=== PATIENT | male | born 1960 | race Caucasian/White ===

== ENCOUNTER 2018-03-29 22:55 | Inpatient (IN) | END 2018-04-03 18:07 | disposition home or self-care (01) | DRG 439 ==

== ENCOUNTER 2018-05-28 00:35 | Inpatient (IN) | END 2018-05-31 16:10 | disposition home or self-care (01) | DRG 439 ==

== ENCOUNTER 2018-10-04 19:40 | Inpatient (IN) | payer BC ==
[~2018-10-04] VITALS: Ht 170.2 cm; Wt 96.2 kg
[~2018-10-04 19:40] MED LIST: CIPR500T4 PO; METR500T PO
[2018-10-04] MEDS ORDERED: LIDOCAINE/MYLANTA 40 ML BTL PO STA (22:11)
[2018-10-04] MEDS ORDERED: FAMOTIDINE 20 MG INJ IV STA (22:11)
[2018-10-04] MEDS ORDERED: BELLADONNA/PHENOBARBITAL TAB PO STA (22:11)
--- NOTE | 2018-10-04 22:44 | ERD ---
ER Documentation Chief Complaint Chief Complaint EPIGASTRIC PAIN X'S 6 DAYS; PAIN INCREASING HPI Very pleasant 58-year-old gentleman prior history of gallstone pancreatitis who presents to the emergency room with epigastric postprandial symptoms. He describes approximately 1 week of symptoms that are usually worse with caffeine and chocolate. He describes a gurgling sensation in his epigastrium with mild burning sensation. He states this feels different than his pancreatitis. He denies any hematemesis or melena. No fevers or chills. No chest pressure or exertional symptoms. ROS All systems reviewed and are negative except as per history of present illness. Medications Home Meds Active Scripts Metronidazole* (Flagyl*) 500 Mg Tablet, 500 MG PO Q8 for 4 Days, TAB Prov:KOFI METZGER MD 05/31/18 Ciprofloxacin Hcl* (Ciprofloxacin Hcl*) 500 Mg Tablet, 500 MG PO BID for 4 Days, #14 TAB Prov:KOFI METZGER MD 05/31/18 Allergies Allergies: Coded Allergies: No Known Allergy (Unverified , 03/29/18) PMhx/Soc History of Surgery: No Anesthesia Reaction: No Hx Neurological Disorder: No Hx Respiratory Disorders: No Hx Cardiac Disorders: No Hx Psychiatric Problems: No Hx Miscellaneous Medical Probl: No Hx Alcohol Use: No Hx Substance Use: No Hx Tobacco Use: No FmHx Family History: No diabetes Physical Exam Vitals Vital Signs Date Temp Pulse Resp B/P (MAP) Pulse Ox O2 O2 Flow FiO2 Time Delivery Rate 10/04/18 98.7 62 18 189/106 97 19:48 (133) Physical Exam General: Well developed, well nourished, no acute distress Head: Normocephalic, atraumatic. Eyes: Pupils equally reactive, EOM intact ENT: Moist mucous membranes Neck: Supple, no lymphadenopathy Respiratory: Lungs clear bilaterally, no distress Cardiovascular: RRR, no murmurs, rubs, or gallops Abdominal: Soft, mild epigastric abdominal discomfort and tenderness to palpation, negative Cervantes sign, otherwise benign abdominal exam without peritonitis. : Deferred MSK: No edema, no unilateral swelling, 5/5 strength Neurologic: Alert and oriented, moving all extremities, normal speech, no focal weakness, no cerebellar signs Skin: No rash Psych: Normal mood Result Diagram: 5/1/19 2223 5/1/19 2223 Results 24 hrs Laboratory Tests Test 10/04/18 22:23 White Blood Count 10.7 10^3/ul Red Blood Count 5.05 10^6/ul Hemoglobin 15.6 g/dl Hematocrit 46.0 % Mean Corpuscular Volume 91.1 fl Mean Corpuscular Hemoglobin 30.9 pg Mean Corpuscular Hemoglobin Concent 33.9 g/dl Red Cell Distribution Width 12.8 % Platelet Count 182 10^3/UL Mean Platelet Volume 11.8 fl Immature Granulocytes % 0.300 % Neutrophils % 81.5 % Lymphocytes % 13.1 % Monocytes % 4.7 % Eosinophils % 0.1 % Basophils % 0.3 % Nucleated Red Blood Cells % 0.0 /100WBC Immature Granulocytes # 0.030 10^3/ul Neutrophils # 8.7 10^3/ul Lymphocytes # 1.4 10^3/ul Monocytes # 0.5 10^3/ul Eosinophils # 0.0 10^3/ul Basophils # 0.0 10^3/ul Nucleated Red Blood Cells # 0.0 10^3/ul Sodium Level 136 mmol/L Potassium Level 4.3 mmol/L Chloride Level 100 mmol/L Carbon Dioxide Level 28 mmol/L Anion Gap 8 Blood Urea Nitrogen 15 mg/dl Creatinine 0.60 mg/dl Est Glomerular Filtrat Rate mL/min > 60 mL/min Glucose Level 143 mg/dl Calcium Level 9.7 mg/dl Total Bilirubin 1.0 mg/dl Direct Bilirubin 0.00 mg/dl Indirect Bilirubin 1.0 mg/dl Aspartate Amino Transf (AST/SGOT) 59 IU/L Alanine Aminotransferase (ALT/SGPT) 148 IU/L Alkaline Phosphatase 154 IU/L Total Protein 7.6 g/dl Albumin 4.3 g/dl Globulin 3.30 g/dl Albumin/Globulin Ratio 1.30 Lipase 4156 U/L Current Medications Medications Dose Sig/Estela Start Time Status Last (Trade) Ordered Route PRN Stop Time Admin Dose Reason Admin Famotidine 20 mg ONCE STAT 10/04/18 DC 10/04/18 (Pepcid Iv) IV 22:11 10/04/18 22:35 22:12 40 ml ONCE STAT 10/04/18 DC 10/04/18 Miscellaneous PO 22:11 10/04/18 22:35 Medication 22:12 (Gi Cocktail (2)) Belladonna/ 2 tab ONCE STAT 10/04/18 DC 10/04/18 Phenobarbital PO 22:11 10/04/18 22:35 () 22:12 Ondansetron 4 mg BRIDGE ORDER 10/05/18 HCl (Zofran PRN IV 01:00 10/06/18 Inj) NAUSEA/VOMITI 00:59 NG 650 mg ER BRIDGE 10/05/18 Acetaminophen PRN PO 01:00 10/06/18 (Tylenol .MILD PAIN 00:59 Tab) 1-3 OR TEMP Procedures/MDM EKG, MONITORS, & DIAGNOSTIC IMAGING: Ultrasound gallbladder: IMPRESSION: Gallstones and gallbladder sludge without ultrasound evidence of cholecystitis. Mildly dilated common bile duct measuring 6.8 mm. Mild hepatomegaly. Pancreas obscured by overlying bowel gas. XR knee IMPRESSION: Mild medial joint compartment narrowing. Patellofemoral joint osteoarthritis. RPTAT: HLRS LAB INTERPRETATION: I reviewed the laboratory testing and it shows transaminitis and elevated lipase MEDICAL DECISION MAKING: The patient symptoms seem to be more postprandial and likely gastric in etiology. However the patient has a history of pancreatitis related to gallsto hyun. Will have a lower pretest probability for hepatobiliary process ultrasound and laboratory testing would be most appropriate. No chest pain or pressure or exertional symptoms to suggest cardiac etiology. Patient has a benign abdominal exam without concern for acute appendicitis, bowel obstruction or other acute intra-abdominal abnormality. ER COURSE: * GI cocktail provided * Patient found to have pancreatitis likely secondary to gallstones. No evidence of acute cholecystitis. No evidence of ascending cholangitis. No indication for antibiotics. Patient is n.p.o. * Patient to be admitted for further management of likely gallstone pancreatitis. Patient likely requires nonemergent general surgery and GI consultation. CONSULTATION: [None] DISPOSITION PLAN: Medical surgical admission for management of gallstone pancreatitis accepting care team and consultations: I discussed the current laboratory data, diagnostic imaging and emergency care provided. Admitting team: Dr. Lane Pham Admitting team indication: Insurance directed Departure Diagnosis: Primary Impression: Acute gallstone pancreatitis Additional Impression: Epigastric abdominal pain Condition: Stable DEVIN FABIAN MD October 04, 2018 22:44
[2018-10-05] MEDS ORDERED: ACETAMINOPHEN 325 MG TAB PO PRN (01:00)
[2018-10-05] MEDS ORDERED: ONDANSETRON 4 MG INJ IV PRN ×2 (01:00→06:00)
[2018-10-05 02:25] VITALS: Ht 170.2 cm; Wt 96.2 kg
[2018-10-05 02:30] VITALS: BP 161/92; PULSE 74; RESP 20
[2018-10-05] MEDS: DEXTROSE 5%-0.45% NACL 1,000 ML IV SCH ×2 (06:41→22:06)
[2018-10-05] MEDS: morphine 2 MG INJ IV PRN (06:41)
[2018-10-05] MEDS: PANTOPRAZOLE 40 MG INJ IV SCH (06:42)
[2018-10-05 07:43] VITALS: BP 161/92; PULSE 84; RESP 18
[2018-10-05] MEDS: CEFTRIAXONE 1 GM/50 ML (PMX) 50 ML IVPB SCH (08:06)
[2018-10-05] MEDS ORDERED: CEFTRIAXONE 1 GM INJ IVPB SCH (09:00)
[2018-10-05] MEDS ORDERED: CEFTRIAXONE 1 GM INJ IM SCH (09:00)
--- NOTE | 2018-10-05 09:47 | CONS ---
Assessment/Plan Assessment/Plan Hospital Course (Demo Recall) 1. 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 Cholelithiasis -As above -Eventual cholecystectomy once #1 resolved 3. Abdominal pain: -Pain management 4. Leukocytosis -As above -Trend 5. Transaminitis with elevated bilirubin: -Trend -As above 6. Hypoalbuminemia with hypocalcemia: -Eventual nutrition optimization -Treat infections 7. Obesity: BMI: 33 -diet and exercise optimization -encourage weight loss 8. Hypertension -Highly encourage weight loss -Nutrition and medication optimization Thank you. Patient seen and examined in collaboration with Dr. Matteo Pennington. Consultation Date/Type/Reason Admit Date/Time October 05, 2018 at 00:42 Type of Consult Surgical Reason for Consultation Gallstone pancreatitis Date/Time of Note DATE: 10/05/18 TIME: 09:43 Hx of Present Illness Lilli Camargo is a 58-year-old man vwho is known to our service from previous admissions with significant history of gallstone pancreatitis, who presented to the ED with complaints of abdominal pain. Abdominal pain is predominantly midepigastric strong and persistent in nature. He also reports having a burning sensation in the area, different from pain he experienced when he had pancreatitis. Aggravating factors include food, particularly caffeine and chocolate. He denies fevers, chills, congested cough, chest pain, palpitations, nausea, vomiting, diarrhea, bowel or bladder habit changes, skin or scleral changes. Prior imaging performed in 05/2018 noted acute on chronic interstitial edematous pancreatitis with phlegmon anterior to right kidney and slightly increased wall thickening of the third portion of duodenum with surrounding inflammatory changes. Current gallbladder ultrasound shows gallstones with gallbladder sludge without pericholecystic fluid or gallbladder wall thickening. Notably, he has a mildly dilated common bile duct of 6.8 mm. Laboratory findings significant for leukocytosis with WBC of 12.8, elevated transaminases and lipase of 4156. General surgery was asked to evaluate. 12 point ros was performed and is negative except as stated in hpi. Past Medical History Gallstone pancreatitis with phlegmon, obesity, traumatic abdominal injury status post fall from tree with resulting pancreatic and splenic injury as well as ab dominal infection status post drainage of abscess in 2017 Home Meds Discontinued Scripts Metronidazole* (Flagyl*) 500 Mg Tablet, 500 MG PO Q8 for 4 Days, TAB Prov:KOFI METZGER MD 05/31/18 Ciprofloxacin Hcl* (Ciprofloxacin Hcl*) 500 Mg Tablet, 500 MG PO BID for 4 Days, #14 TAB Prov:KOFI METZGER MD 05/31/18 Medications Current Medications Morphine Sulfate (morphine) 2 mg Q6 PRN IV SEVERE PAIN LEVEL 7-10 Last administered on 10/05/18at 06:41; Admin Dose 2 MG; Start 10/05/18 at 06:00 Ondansetron HCl (Zofran Inj) 4 mg Q6H PRN IV NAUSEA AND/OR VOMITING; Start 10/05/18 at 06:00 Dextrose/Sodium Chloride 1,000 ml @ 50 mls/hr Q20H IV Last administered on 10/05/18at 06:41; Admin Dose 50 MLS/HR; Start 10/05/18 at 06:00 Pantoprazole (Protonix Iv) 40 mg DAILY@06 IV Last administered on 10/05/18at 06:42; Admin Dose 40 MG; Start 10/05/18 at 06:00 Ceftriaxone Sodium 50 ml @ 100 mls/hr Q24H IVPB Last administered on 10/05/18at 08:06; Admin Dose 100 MLS/HR; Start 10/05/18 at 09:00 Allergies: Coded Allergies: No Known Allergy (Unverified , 10/05/18) Past Surgical History Past Surgical Hx: no surgical history Social History Smoking Status: Never smoker Exam/Review of Systems Exam Vitals Vital Signs Date Temp Pulse Resp B/P (MAP) Pulse Ox O2 O2 Flow FiO2 Time Delivery Rate 10/05/18 98.5 84 18 161/92 95 Room Air 07:43 (115) Exam Constitutional: alert, oriented Psych: no complaints, nl mood/affect Head: normocephalic, atraumatic Eyes: nl conjunctiva, EOMI, nl sclera ENMT: nl external ears & nose, nl lips & teeth, mucosa pink and moist Neck: supple, non-tender Respiratory: clear to auscultation, normal air movement; No congested cough, No labored breathing Cardiovascular: regular rate and rhythm, nl pulses; No edema Gastrointestinal: soft, tender (min), obese, no rebound/guarding/rigidity Musculoskeletal: nl extremities to inspection, nl gait and stance Extremities: normal pulses; No pitting pedal edema Neurological: nl mental status, nl speech, nl strength Skin: No rash or lesions Results Result Diagram: 10/05/18 0716 10/05/18 0716 Results 24hrs Laboratory Tests Test 10/04/18 22:23 10/05/18 07:16 White Blood Count 10.7 # 12.8 H Red Blood Count 5.05 4.79 Hemoglobin 15.6 15.0 Hematocrit 46.0 43.2 Mean Corpuscular Volume 91.1 90.2 Mean Corpuscular Hemoglobin 30.9 31.3 Mean Corpuscular Hemoglobin Concent 33.9 34.7 Red Cell Distribution Width 12.8 12.4 Platelet Count 182 173 Mean Platelet Volume 11.8 H 12.1 H Immature Granulocytes % 0.300 0.300 Neutrophils % 81.5 H 75.7 Lymphocytes % 13.1 L 16.4 Monocytes % 4.7 6.9 Eosinophils % 0.1 0.5 Basophils % 0.3 0.2 Nucleated Red Blood Cells % 0.0 0.0 Immature Granulocytes # 0.030 0.040 H Neutrophils # 8.7 H 9.7 H Lymphocytes # 1.4 2.1 Monocytes # 0.5 0.9 Eosinophils # 0.0 0.1 Basophils # 0.0 0.0 Nucleated Red Blood Cells # 0.0 0.0 Sodium Level 136 137 Potassium Level 4.3 3.7 Chloride Level 100 101 Carbon Dioxide Level 28 27 Anion Gap 8 9 Blood Urea Nitrogen 15 13 Creatinine 0.60 L 0.50 L Est Glomerular Filtrat Rate mL/min > 60 > 60 Glucose Level 143 122 Calcium Level 9.7 9.0 Total Bilirubin 1.0 1.2 Direct Bilirubin 0.00 0.00 Indirect Bilirubin 1.0 1.2 H Aspartate Amino Transf (AST/SGOT) 59 H 47 H Alanine Aminotransferase (ALT/SGPT) 148 H 125 H Alkaline Phosphatase 154 H 142 H Total Protein 7.6 6.6 # Albumin 4.3 3.8 Globulin 3.30 H 2.80 Albumin/Globulin Ratio 1.30 1.35 Lipase 4156 H Medications Medication Current Medications Morphine Sulfate (morphine) 2 mg Q6 PRN IV SEVERE PAIN LEVEL 7-10 Last administered on 10/05/18at 06:41; Admin Dose 2 MG; Start 10/05/18 at 06:00 Ondansetron HCl (Zofran Inj) 4 mg Q6H PRN IV NAUSEA AND/OR VOMITING; Start 10/05/18 at 06:00 Dextrose/Sodium Chloride 1,000 ml @ 50 mls/hr Q20H IV Last administered on 10/05/18at 06:41; Admin Dose 50 MLS/HR; Start 10/05/18 at 06:00 Pantoprazole (Protonix Iv) 40 mg DAILY@06 IV Last administered on 10/05/18at 06:42; Admin Dose 40 MG; Start 10/05/18 at 06:00 Ceftriaxone Sodium 50 ml @ 100 mls/hr Q24H IVPB Last administered on 10/05/18at 08:06; Admin Dose 100 MLS/HR; Start 10/05/18 at 09:00 SELVIN PÉREZ NP October 05, 2018 09:47
[2018-10-05] MEDS ORDERED: IOHEXOL 300MG/ML 150 ML BTL ONE (12:10)
[2018-10-05] MEDS ORDERED: SOD CHLORIDE 0.9% 100 ML ONE (12:10)
[2018-10-05 14:49] VITALS: BP 157/97; PULSE 75; RESP 18
--- NOTE | 2018-10-05 15:32 | QN ---
Documentation Comment seen and examined KOFI METZGER MD October 05, 2018 15:31
[2018-10-05] MEDS: metroNIDAZOLE 500 MG/NS (PMX) 100 ML IVPB SCH ×2 (16:42→22:20)
--- NOTE | 2018-10-05 19:21 | HP ---
DATE OF ADMISSION: 10/05/2018 REASON FOR ADMISSION: Abdominal pain. HISTORY OF PRESENTING ILLNESS: This is a 58-year-old male with a past medical history of recurrent g allstone pancreatitis who was recently admitted in 05/2018 secondary to gallstone pancreatitis. At [facility] time, the patient was treated conservatively and was told to get surgery as an outpatient. [facility] er, according to the patient, he went home, he was doing fine. He was started on probably Creon. He was supposed to see Dr. Pennington as an outpatient and he was scheduled to see him in October. According to him, he started having epigastric abdominal pain which was becoming intermittently for the past w days and then it was becoming continuous. It was getting progressively worse and worse every day t [facility] made him come to the emergency department. Every time he was eating, his pain was getting worse. He had some nausea. Denied any fevers, chills, chest pain, shortness of breath. On arrival to ED, vital signs showed a blood pressure of 189/106, white count of 10.7, a BUN of 15, creatinine 0.60, A ST 59, ALT 148, alkaline phosphatase 154, lipase 4156. The patient was started on IV fluids and anti biotics and was admitted for further management. Currently, the patient feels better from yesterday. PAST MEDICAL HISTORY: History of gallstone pancreatitis. ALLERGIES: NONE. MEDICATIONS: Taking at home: None. SOCIAL HISTORY: Denies any history of smoking, alcohol or any drug use. Currently works in [employer]. FAMILY HISTORY: Noncontributory. REVIEW OF SYSTEMS: The patient complains of severe epigastric right upper quadrant pain. There was some nausea. Denied any vomiting, any diarrhea, poor appetite. Denied any fevers and chills. Denie d any hematemesis, any melena, any blood per rectum. PHYSICAL EXAMINATION: VITAL SIGNS: Currently, blood pressure 138/98, afebrile, heart rate 78, respirations 18. GENERAL: The patient is awake, alert, oriented, appears to be in mild distress secondary to pain. HEENT: Pupils equal, round, reactive to light. No scleral icterus. NECK: Supple, no JVD. HEART: Regular rate and rhythm. LUNGS: Clear to auscultate bilaterally. ABDOMEN: Some tenderness present in the right upper quadrant. Positive bowel sounds. No peritoneal signs. EXTREMITIES: No clubbing, cyanosis, or edema. NEUROLOGIC: Nonfocal. DIAGNOSTIC DATA: AST 59, ALT 148, alkaline phosphatase 154. White count of 10.7, platelet count 182 . The patient had a gallbladder ultrasound that showed gallstones and gallbladder sludge without ult rasound evidence of cholecystitis, mildly dilated common bile duct measuring 6.8 mm, mild hepatomegal y. ASSESSMENT AND PLAN: This is a 58-year-old male presenting with: 1. Recurrent episodes of gallstone pancreatitis. 2. Cholelithiasis. 3. Leukocytosis secondary to #1. 4. Abnormal LFTs and elevated bilirubin secondary to #1. 5. Hypoalbuminemia. 6. Hypertension. 7. Obesity. PLAN: At this period of time, the patient is admitted to med/surg unit. The patient will be on IV f luids, pain control, IV antibiotics. The patient had a CT of the abdomen and pelvis that was ordered by surgery. We will also call GI consultation, get an MRCP. Rest of the treatment will depend on t he patient's hospitalization course. Dictated By: KOFI MONTGOMERY/TAWANDA Conf#: [id number] DID#: [id number] CC: ELIDA BARNES MD;*EndCC*
[2018-10-05 20:00] VITALS: BP 153/96; PULSE 78; RESP 18
[2018-10-06 02:00] VITALS: BP 139/78; PULSE 76; RESP 19
[2018-10-06] MEDS: DEXTROSE 5%-0.45% NACL 1,000 ML IV SCH ×4 (04:15→23:06)
[2018-10-06] MEDS: PANTOPRAZOLE 40 MG INJ IV SCH (05:54)
[2018-10-06] MEDS: metroNIDAZOLE 500 MG/NS (PMX) 100 ML IVPB SCH ×3 (05:55→21:55)
[2018-10-06 07:44] VITALS: BP 138/88; PULSE 71; RESP 16
[2018-10-06] MEDS: CEFTRIAXONE 1 GM/50 ML (PMX) 50 ML IVPB SCH (08:30)
--- NOTE | 2018-10-06 12:21 | PN ---
Date/Time of Note Date/Time of Note DATE: 10/06/18 TIME: 12:06 Assessment/Plan Lines/Catheters IV Catheter Type (from [facility]): Peripheral IV Turk in Place (from [facility]): No Assessment/Plan Chief Complaint/Hosp Course 1. 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 Cholelithiasis -As above -Eventual cholecystectomy once #1 resolved 3. Abdominal pain: improved -Pain management 4. Leukocytosis -As above -Trend 5. Transaminitis with elevated bilirubin: -Trend -As above 6. Hypoalbuminemia with hypocalcemia: -Eventual nutrition optimization -Treat infections 7. Obesity: BMI: 33 -diet and exercise optimization -encourage weight loss 8. Hypertension -Highly encourage weight loss -Nutrition and medication optimization Thank you. Patient seen and examined in collaboration with Dr. Matteo Pennington. Subjective 24 Hr Interval Summary Abdominal pain improved. Pending ERCP today. No fevers, chills, sob, congested cough, cp, palpitations, monsalve, dizziness, nausea, vomiting, diarrhea, dysuria. wbc normalized Exam/Review of Systems Vital Signs Vitals Vital Signs Date Temp Pulse Resp B/P (MAP) Pulse Ox O2 O2 Flow FiO2 Time Delivery Rate 10/06/18 98.3 71 16 138/88 97 07:44 (105) 10/05/18 Room Air 20:00 Intake and Output 10/05/18 10/05/18 10/06/18 1515:00 23:00 07:00 IntakeIntake Total 650 ml 780 ml OutputOutput Total 500 ml BalanceBalance 150 ml 780 ml Exam Free Text/Dictation Constitutional: alert, oriented Psych: no complaints, nl mood/affect Head: normocephalic, atraumatic Eyes: nl conjunctiva, EOMI, nl sclera ENMT: nl external ears & nose, nl lips & teeth, mucosa pink and moist Neck: supple, non-tender Respiratory: clear to auscultation, normal air movement; No congested cough, No labored breathing Cardiovascular: regular rate and rhythm, nl pulses; No edema Gastrointestinal: soft, tender (min), obese, no rebound/guarding/rigidity Musculoskeletal: nl extremities to inspection, nl gait and stance Extremities: normal pulses; No pitting pedal edema Neurological: nl mental status, nl speech, nl strength Skin: No rash or lesions Results Result Diagram: 10/06/18 0419 10/06/18 0419 SELVIN PÉREZ NP October 06, 2018 12:21
[2018-10-06 14:37] VITALS: BP 152/91; PULSE 60; RESP 16
--- NOTE | 2018-10-06 14:43 | PN ---
Date/Time of Note Date/Time of Note DATE: 10/06/18 TIME: 14:41 Assessment/Plan VTE Prophylaxis Risk score (from [facility])>0 risk: 1 SCD applied (from [facility]): Yes Pharmacological prophylaxis: NA/contraindicated Pharm contraindication: surgical contra Lines/Catheters IV C[facility]ter Type (from [facility]): Peripheral IV Urinary Cath still in place: No Assessment/Plan Hospital Course 1. Recurrent episodes of gallstone pancreatitis. 2. Cholelithiasis. 3. Leukocytosis secondary to #1, resolved 4. Abnormal LFTs and elevated bilirubin secondary to #1. 5. Hypoalbuminemia. 6. Hypertension. 7. Obesity. Assessment/Plan -Surg. cons. dr Pennington -GI consult dr Pacheco - med/surg unit. -c/w IV fluids, -c/w pain control, -c/w IV antibiotics. _GI prophylaxis Protonix -DVT proph. SCD. - MRCP neg for choledocholithiasis _ERCP pending. Result Diagram: 10/06/18 0419 10/06/18 0419 Results 24hrs Laboratory Tests Test 10/06/18 04:19 White Blood Count 10.1 # Red Blood Count 4.77 Hemoglobin 14.9 Hematocrit 43.4 Mean Corpuscular Volume 91.0 Mean Corpuscular Hemoglobin 31.2 Mean Corpuscular Hemoglobin Concent 34.3 Red Cell Distribution Width 12.3 Platelet Count 173 Mean Platelet Volume 12.8 H Immature Granulocytes % 0.300 Neutrophils % 66.4 Lymphocytes % 22.0 Monocytes % 9.5 Eosinophils % 1.4 Basophils % 0.4 Nucleated Red Blood Cells % 0.0 Immature Granulocytes # 0.030 Neutrophils # 6.7 Lymphocytes # 2.2 Monocytes # 1.0 H Eosinophils # 0.1 Basophils # 0.0 Nucleated Red Blood Cells # 0.0 Sodium Level 140 Potassium Level 3.9 Chloride Level 105 Carbon Dioxide Level 25 Anion Gap 10 Blood Urea Nitrogen 12 Creatinine 0.56 L Est Glomerular Filtrat Rate mL/min > 60 Glucose Level 109 Calcium Level 9.1 Phosphorus Level 3.3 Magnesium Level 1.7 Total Bilirubin 1.0 Direct Bilirubin 0.00 Indirect Bilirubin 1.0 Aspartate Amino Transf (AST/SGOT) 33 Alanine Aminotransferase (ALT/SGPT) 98 H Alkaline Phosphatase 134 H Total Protein 6.8 Albumin 3.8 Globulin 3.00 Albumin/Globulin Ratio 1.26 Lipase 526 H Subjective 24 Hr Interval Summary Gastrointestinal: pain, nausea, vomiting; No no complaints, No blood, No constipation, No decreased appetite, No diarrhea, No flatus, No passing stool, No other Exam/Review of Systems Exam Vitals Vital Signs Date Temp Pulse Resp B/P (MAP) Pulse Ox O2 O2 Flow FiO2 Time Delivery Rate 10/06/18 98.4 60 16 152/91 96 Room Air 14:37 (111) Intake and Output 10/05/18 10/05/18 10/06/18 1515:00 23:00 07:00 IntakeIntake Total 650 ml 780 ml OutputOutput Total 500 ml BalanceBalance 150 ml 780 ml Constitutional: alert, oriented Psych: no complaints Head: normocephalic Neck: supple Cardiovascular: regular rate and rhythm Gastrointestinal: soft, other (neg. Merphy sign) Musculoskeletal: nl extremities to inspection Results Results 24hrs Laboratory Tests Test 10/06/18 04:19 White Blood Count 10.1 # Red Blood Count 4.77 Hemoglobin 14.9 Hematocrit 43.4 Mean Corpuscular Volume 91.0 Mean Corpuscular Hemoglobin 31.2 Mean Corpuscular Hemoglobin Concent 34.3 Red Cell Distribution Width 12.3 Platelet Count 173 Mean Platelet Volume 12.8 H Immature Granulocytes % 0.300 Neutrophils % 66.4 Lymphocytes % 22.0 Monocytes % 9.5 Eosinophils % 1.4 Basophils % 0.4 Nucleated Red Blood Cells % 0.0 Immature Granulocytes # 0.030 Neutrophils # 6.7 Lymphocytes # 2.2 Monocytes # 1.0 H Eosinophils # 0.1 Basophils # 0.0 Nucleated Red Blood Cells # 0.0 Sodium Level 140 Potassium Level 3.9 Chloride Level 105 Carbon Dioxide Level 25 Anion Gap 10 Blood Urea Nitrogen 12 Creatinine 0.56 L Est Glomerular Filtrat Rate mL/min > 60 Glucose Level 109 Calcium Level 9.1 Phosphorus Level 3.3 Magnesium Level 1.7 Total Bilirubin 1.0 Direct Bilirubin 0.00 Indirect Bilirubin 1.0 Aspartate Amino Transf (AST/SGOT) 33 Alanine Aminotransferase (ALT/SGPT) 98 H Alkaline Phosphatase 134 H Total Protein 6.8 Albumin 3.8 Globulin 3.00 Albumin/Globulin Ratio 1.26 Lipase 526 H Medications Medication Current Medications Morphine Sulfate (morphine) 2 mg Q6 PRN IV SEVERE PAIN LEVEL 7-10 Last administered on 10/05/18at 06:41; Admin Dose 2 MG; Start 10/05/18 at 06:00 Ondansetron HCl (Zofran Inj) 4 mg Q6H PRN IV NAUSEA AND/OR VOMITING; Start 10/05/18 at 06:00 Dextrose/Sodium Chloride 1,000 ml @ 80 mls/hr [id number] IV Last administered on 10/06/18at 04:15; Admin Dose 80 MLS/HR; Start 10/05/18 at 06:00 Pantoprazole (Protonix Iv) 40 mg DAILY@06 IV Last administered on 10/06/18at 05:54; Admin Dose 40 MG; Start 10/05/18 at 06:00 Ceftriaxone Sodium 50 ml @ 100 mls/hr Q24H IVPB Last administered on 10/06/18at 08:30; Admin Dose 100 MLS/HR; Start 10/05/18 at 09:00 Metronidazole 100 ml @ 100 mls/hr Q8 IVPB Last administered on 10/06/18at 05:55; Admin Dose 100 MLS/HR; Start 10/05/18 at 16:00 SUZAN HOWELL October 06, 2018 14:43
[2018-10-06] MEDS ORDERED: hydrALAzine 20 MG INJ IV PRN (15:00)
[2018-10-06 20:16] VITALS: BP 158/89; PULSE 75; RESP 18
[2018-10-07 01:52] VITALS: BP 138/89; PULSE 74; RESP 16
[2018-10-07] MEDS: metroNIDAZOLE 500 MG/NS (PMX) 100 ML IVPB SCH ×3 (05:51→21:32)
[2018-10-07] MEDS: PANTOPRAZOLE 40 MG INJ IV SCH (05:51)
[2018-10-07 07:36] VITALS: BP 126/63; PULSE 68; RESP 17
[2018-10-07] MEDS: CEFTRIAXONE 1 GM/50 ML (PMX) 50 ML IVPB SCH (08:13)
[2018-10-07] MEDS: DEXTROSE 5%-0.45% NACL 1,000 ML IV SCH ×2 (11:36→14:08)
--- NOTE | 2018-10-07 13:35 | PN ---
Date/Time of Note Date/Time of Note DATE: 10/07/18 TIME: 13:33 Assessment/Plan VTE Prophylaxis Risk score (from [facility] [place])>0 risk: 2 SCD applied (from [facility] [place]): Yes Pharmacological prophylaxis: NA/contraindicated Pharm contraindication: surgical contra Lines/Catheters IV [facility]ter Type (from [facility]): Peripheral IV Urinary Cath still in place: No Assessment/Plan Hospital Course 1. Recurrent episodes of gallstone pancreatitis. 2. Cholelithiasis. 3. Leukocytosis secondary to #1, resolved 4. Abnormal LFTs and elevated bilirubin secondary to #1, resolving 5. Hypoalbuminemia. 6. Hypertension. 7. Obesity. Assessment/Plan -Surg. cons. dr Pennington communicated for lap.nimisha. -GI consult dr Pacheco spoke that pt had neg. MRCP, no need ERCP - med/surg unit. -c/w IV fluids, -c/w pain control, -c/w IV antibiotics. _GI prophylaxis Protonix -DVT proph. SCD. - MRCP neg for choledocholithiasis Result Diagram: 10/07/182 10/07/18 0442 Results 24hrs Laboratory Tests Test 10/07/18 04:42 White Blood Count 9.5 Red Blood Count 4.72 Hemoglobin 14.7 Hematocrit 42.2 Mean Corpuscular Volume 89.4 Mean Corpuscular Hemoglobin 31.1 Mean Corpuscular Hemoglobin Concent 34.8 Red Cell Distribution Width 12.3 Platelet Count 174 Mean Platelet Volume 12.2 H Immature Granulocytes % 0.200 Neutrophils % 55.7 Lymphocytes % 28.5 Monocytes % 10.1 Eosinophils % 4.9 Basophils % 0.6 Nucleated Red Blood Cells % 0.0 Immature Granulocytes # 0.020 Neutrophils # 5.3 Lymphocytes # 2.7 Monocytes # 1.0 H Eosinophils # 0.5 Basophils # 0.1 Nucleated Red Blood Cells # 0.0 Sodium Level 140 Potassium Level 3.8 Chloride Level 107 Carbon Dioxide Level 25 Anion Gap 8 Blood Urea Nitrogen 11 Creatinine 0.53 L Est Glomerular Filtrat Rate mL/min > 60 Glucose Level 104 Calcium Level 9.0 Total Bilirubin 0.8 Direct Bilirubin 0.00 Indirect Bilirubin 0.8 Aspartate Amino Transf (AST/SGOT) 27 Alanine Aminotransferase (ALT/SGPT) 77 H Alkaline Phosphatase 118 Total Protein 6.5 Albumin 3.6 Globulin 2.90 Albumin/Globulin Ratio 1.24 Amylase Level 72 Subjective 24 Hr Interval Summary Gastrointestinal: pain, constipation; No no complaints, No blood, No decreased appetite, No diarrhea, No flatus, No nausea, No passing stool, No vomiting, No other Exam/Review of Systems Exam Vitals Vital Signs Date Temp Pulse Resp B/P (MAP) Pulse Ox O2 O2 Flow FiO2 Time Delivery Rate 10/07/18 98.4 68 17 126/63 94 Room Air 07:36 (84) Intake and Output 10/06/18 10/06/18 10/07/18 1515:00 23:00 07:00 IntakeIntake Total 1020 ml 750 ml OutputOutput Total 500 ml BalanceBalance 1020 ml 250 ml Constitutional: alert, oriented Respiratory: clear to auscultation Cardiovascular: regular rate and rhythm Gastrointestinal: soft Extremities: normal pulses Results Results 24hrs Laboratory Tests Test 10/07/18 04:42 White Blood Count 9.5 Red Blood Count 4.72 Hemoglobin 14.7 Hematocrit 42.2 Mean Corpuscular Volume 89.4 Mean Corpuscular Hemoglobin 31.1 Mean Corpuscular Hemoglobin Concent 34.8 Red Cell Distribution Width 12.3 Platelet Count 174 Mean Platelet Volume 12.2 H Immature Granulocytes % 0.200 Neutrophils % 55.7 Lymphocytes % 28.5 Monocytes % 10.1 Eosinophils % 4.9 Basophils % 0.6 Nucleated Red Blood Cells % 0.0 Immature Granulocytes # 0.020 Neutrophils # 5.3 Lymphocytes # 2.7 Monocytes # 1.0 H Eosinophils # 0.5 Basophils # 0.1 Nucleated Red Blood Cells # 0.0 Sodium Level 140 Potassium Level 3.8 Chloride Level 107 Carbon Dioxide Level 25 Anion Gap 8 Blood Urea Nitrogen 11 Creatinine 0.53 L Est Glomerular Filtrat Rate mL/min > 60 Glucose Level 104 Calcium Level 9.0 Total Bilirubin 0.8 Direct Bilirubin 0.00 Indirect Bilirubin 0.8 Aspartate Amino Transf (AST/SGOT) 27 Alanine Aminotransferase (ALT/SGPT) 77 H Alkaline Phosphatase 118 Total Protein 6.5 Albumin 3.6 Globulin 2.90 Albumin/Globulin Ratio 1.24 Amylase Level 72 Medications Medication Current Medications Morphine Sulfate (morphine) 2 mg Q6 PRN IV SEVERE PAIN LEVEL 7-10 Last administered on 10/05/18at 06:41; Admin Dose 2 MG; Start 10/05/18 at 06:00 Ondansetron HCl (Zofran Inj) 4 mg Q6H PRN IV NAUSEA AND/OR VOMITING; Start 10/05/18 at 06:00 Dextrose/Sodium Chloride 1,000 ml @ 80 mls/hr [id number] IV Last administered on 10/06/18at 21:54; Admin Dose 80 MLS/HR; Start 10/05/18 at 06:00 Pantoprazole (Protonix Iv) 40 mg DAILY@06 IV Last administered on 10/07/18 05:51; Admin Dose 40 MG; Start 10/05/18 at 06:00 Ceftriaxone Sodium 50 ml @ 100 mls/hr Q24H IVPB Last administered on 10/07/18at 08:13; Admin Dose 100 MLS/HR; Start 10/05/18 at 09:00 Metronidazole 100 ml @ 100 mls/hr Q8 IVPB Last administered on 10/07/18 05:51; Admin Dose 100 MLS/HR; Start 10/05/18 at 16:00 Hydralazine HCl (Apresoline) 10 mg Q6H PRN IV SBP above 160; Start 10/06/18 at 15:00 SUZAN HOWELL October 07, 2018 13:35
--- NOTE | 2018-10-07 14:22 | PN ---
Date/Time of Note Date/Time of Note DATE: 10/07/18 TIME: 14:18 Assessment/Plan Lines/Catheters IV Catheter Type (from [facility]): Peripheral IV Turk in Place (from [facility]): No Assessment/Plan Chief Complaint/Hosp Course 1. 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 Pacheco -trend labs -clear liquids ok -if continues to improve cholecystectomy likely early part of next week 2. Cholelithiasis -As above 3. Abdominal pain: improved -Pain management 4. Leukocytosis: resolved -As above 5. Transaminitis with elevated bilirubin: -Trend -As above 6. Hypoalbuminemia with hypocalcemia: -Eventual nutrition optimization -Treat infections 7. Obesity: BMI: 33 -diet and exercise optimization -encourage weight loss 8. Hypertension -Highly encourage weight loss -Nutrition and medication optimization Thank you. Patient seen and examined in collaboration with Dr. Matteo Pennington. Subjective 24 Hr Interval Summary Feels well. No abdominal discomfort. ERCP cancelled per GI. No fevers, chills, sob, congested cough, cp, palpitations, monsalve, dizziness, n/v/d/dysuria. Exam/Review of Systems Vital Signs Vitals Vital Signs Date Temp Pulse Resp B/P (MAP) Pulse Ox O2 O2 Flow FiO2 Time Delivery Rate 10/07/18 98.4 68 17 126/63 94 Room Air 07:36 (84) Intake and Output 10/06/18 10/06/18 10/07/18 1515:00 23:00 07:00 IntakeIntake Total 1020 ml 750 ml OutputOutput Total 500 ml BalanceBalance 1020 ml 250 ml Exam Free Text/Dictation Constitutional: alert, oriented Psych: no complaints, nl mood/affect Head: normocephalic, atraumatic Eyes: nl conjunctiva, EOMI, nl sclera ENMT: nl external ears & nose, nl lips & teeth, mucosa pink and moist Neck: supple, non-tender Respiratory: clear to auscultation, normal air movement; No congested cough, No labored breathing Cardiovascular: regular rate and rhythm, nl pulses; No edema Gastrointestinal: soft, tender (min), obese, no rebound/guarding/rigidity Musculoskeletal: nl extremities to inspection, nl gait and stance Extremities: normal pulses; No pitting pedal edema Neurological: nl mental status, nl speech, nl strength Skin: No rash or lesions Results Result Diagram: 10/07/18 0442 10/07/18 0442 SELVIN PÉREZ NP October 07, 2018 14:22
--- NOTE | 2018-10-07 15:13 | CONS ---
DATE OF ADMISSION: 10/05/2018 DATE OF CONSULTATION: 10/07/2018 HISTORY OF PRESENT ILLNESS: The patient is a 58-year-old male with a history of gallstone pancreatit is, admitted in 2018, comes to the hospital again complaining of abdominal pain. In the ER, he was e valuated and found to have a pancreatitis with multiple gallstones. Bile duct UA borderline. The pa nitesh had MRCP done which did not show any stone in the bile duct. His lipase which was 4000 and fahad pped down to 4526. LFTs all have been normal. The patient has no abdominal pain now. PAST MEDICAL HISTORY: Gallstone pancreatitis. ALLERGIES: None. MEDICATIONS: None. REVIEW OF SYSTEMS: Negative. PHYSICAL EXAMINATION: GENERAL: Alert, awake, not in distress. VITAL SIGNS: Stable. HEENT: Unremarkable. NECK: Supple, no thyromegaly, no lymphadenopathy. CARDIOVASCULAR: No murmur, gallop or click. LUNGS: Clear. ABDOMEN: Benign. EXTREMITIES: No edema. CENTRAL NERVOUS SYSTEM: Grossly within normal limits. IMPRESSION: 1. Biliary pancreatitis which is almost resolved. 2. Multiple gallstones. 3. Hypertension. 4. Mild obesity. PLAN: Patient definitely needs a laparoscopic cholecystectomy so that it does not develop pancreatit is in the future. Patient has definitely passed a stone, so at this point either for ERCP. However, if he continues to have pain or LFTs are abnormal, then definitely proceed with ERCP. Dictated By: PRABHA DYE/NTS Conf#: [id number] DID#: [id number] CC: Chuy ; ELIDA BARNES MD;*EndCC*
[2018-10-07 19:35] VITALS: BP 138/92; PULSE 62; RESP 18
[2018-10-08 02:40] VITALS: BP 138/91; PULSE 62; RESP 16
[2018-10-08] MEDS: PANTOPRAZOLE 40 MG INJ IV SCH (05:30)
[2018-10-08] MEDS: metroNIDAZOLE 500 MG/NS (PMX) 100 ML IVPB SCH ×4 (05:30→22:34)
[2018-10-08 07:26] VITALS: BP 133/87; PULSE 60; RESP 18
[2018-10-08] MEDS: CEFTRIAXONE 1 GM/50 ML (PMX) 50 ML IVPB SCH (09:00)
--- NOTE | 2018-10-08 12:09 | PN ---
Date/Time of Note Date/Time of Note DATE: 10/08/18 TIME: 12:08 Assessment/Plan VTE Prophylaxis Risk score (from [facility] [place]0 risk: 2 SCD applied (from [facility] [place]): Yes SCD contraindicated: low risk/ambulating Pharmacological prophylaxis: NA/contraindicated Pharm contraindication: surgical contra Lines/Catheters IV Catheter Type (from [facility]): Peripheral IV Urinary Cath still in place: No Assessment/Plan Hospital Course 1. Recurrent episodes of gallstone pancreatitis. 2. Cholelithiasis. 3. Leukocytosis secondary to #1, resolved 4. Abnormal LFTs and elevated bilirubin secondary to #1, resolving 5. Hypoalbuminemia. 6. Hypertension. 7. Obesity. Assessment/Plan -Surg. cons. dr Pennington communicated for lap.nimisha. , baeba. Tuesday -GI consult dr Pacheco appreciated -c/w IV fluids, -c/w pain control, -c/w IV antibiotics. -GI prophylaxis Protonix -DVT proph. SCD. , ambulation Result Diagram: 10/08/188 10/08/188 Results 24hrs Laboratory Tests Test 10/08/18 04:58 White Blood Count 7.8 Red Blood Count 4.80 Hemoglobin 14.9 Hematocrit 43.0 Mean Corpuscular Volume 89.6 Mean Corpuscular Hemoglobin 31.0 Mean Corpuscular Hemoglobin Concent 34.7 Red Cell Distribution Width 12.2 Platelet Count 175 Mean Platelet Volume 12.1 H Immature Granulocytes % 0.400 Neutrophils % 45.9 Lymphocytes % 33.2 Monocytes % 11.1 H Eosinophils % 8.8 H Basophils % 0.6 Nucleated Red Blood Cells % 0.0 Immature Granulocytes # 0.030 Neutrophils # 3.6 Lymphocytes # 2.6 Monocytes # 0.9 Eosinophils # 0.7 H Basophils # 0.1 Nucleated Red Blood Cells # 0.0 Sodium Level 142 Potassium Level 4.1 Chloride Level 107 Carbon Dioxide Level 26 Anion Gap 9 Blood Urea Nitrogen 9 Creatinine 0.53 L Est Glomerular Filtrat Rate mL/min > 60 Glucose Level 106 Calcium Level 9.1 Total Bilirubin 0.7 Direct Bilirubin 0.00 Indirect Bilirubin 0.7 Aspartate Amino Transf (AST/SGOT) 24 Alanine Aminotransferase (ALT/SGPT) 72 H Alkaline Phosphatase 120 Total Protein 6.7 Albumin 3.6 Globulin 3.10 Albumin/Globulin Ratio 1.16 Lipase 183 Subjective 24 Hr Interval Summary Constitutional: no complaints, improved Exam/Review of Systems Exam Vitals Vital Signs Date Temp Pulse Resp B/P (MAP) Pulse Ox O2 O2 Flow FiO2 Time Delivery Rate 10/08/18 98.1 60 18 133/87 97 Room Air 07:26 (102) Intake and Output 10/07/18 10/07/18 10/08/18 1515:00 23:00 07:00 IntakeIntake Total 1440 ml 1300 ml 820 ml BalanceBalance 1440 ml 1300 ml 820 ml Constitutional: alert, oriented Respiratory: clear to auscultation Cardiovascular: regular rate and rhythm Gastrointestinal: soft Results Results 24hrs Laboratory Tests Test 10/08/18 04:58 White Blood Count 7.8 Red Blood Count 4.80 Hemoglobin 14.9 Hematocrit 43.0 Mean Corpuscular Volume 89.6 Mean Corpuscular Hemoglobin 31.0 Mean Corpuscular Hemoglobin Concent 34.7 Red Cell Distribution Width 12.2 Platelet Count 175 Mean Platelet Volume 12.1 H Immature Granulocytes % 0.400 Neutrophils % 45.9 Lymphocytes % 33.2 Monocytes % 11.1 H Eosinophils % 8.8 H Basophils % 0.6 Nucleated Red Blood Cells % 0.0 Immature Granulocytes # 0.030 Neutrophils # 3.6 Lymphocytes # 2.6 Monocytes # 0.9 Eosinophils # 0.7 H Basophils # 0.1 Nucleated Red Blood Cells # 0.0 Sodium Level 142 Potassium Level 4.1 Chloride Level 107 Carbon Dioxide Level 26 Anion Gap 9 Blood Urea Nitrogen 9 Creatinine 0.53 L Est Glomerular Filtrat Rate mL/min > 60 Glucose Level 106 Calcium Level 9.1 Total Bilirubin 0.7 Direct Bilirubin 0.00 Indirect Bilirubin 0.7 Aspartate Amino Transf (AST/SGOT) 24 Alanine Aminotransferase (ALT/SGPT) 72 H Alkaline Phosphatase 120 Total Protein 6.7 Albumin 3.6 Globulin 3.10 Albumin/Globulin Ratio 1.16 Lipase 183 Medications Medication Current Medications Morphine Sulfate (morphine) 2 mg Q6 PRN IV SEVERE PAIN LEVEL 7-10 Last administered on 10/05/18at 06:41; Admin Dose 2 MG; Start 10/05/18 at 06:00 Ondansetron HCl (Zofran Inj) 4 mg Q6H PRN IV NAUSEA AND/OR VOMITING; Start 10/05/18 at 06:00 Dextrose/Sodium Chloride 1,000 ml @ 20 mls/hr Q24H IV Last administered on 10/07/18at 14:08; Admin Dose 20 MLS/HR; Start 10/05/18 at 06:00 Pantoprazole (Protonix Iv) 40 mg DAILY@06 IV Last administered on 10/08/18 05:30; Admin Dose 40 MG; Start 10/05/18 at 06:00 Ceftriaxone Sodium 50 ml @ 100 mls/hr Q24H IVPB Last administered on 10/08/18at 09:00; Admin Dose 100 MLS/HR; Start 10/05/18 at 09:00 Metronidazole 100 ml @ 100 mls/hr Q8 IVPB Last administered on 10/08/18 05:30; Admin Dose 100 MLS/HR; Start 10/05/18 at 16:00 Hydralazine HCl (Apresoline) 10 mg Q6H PRN IV SBP above 160; Start 10/06/18 at 15:00 SUZAN HOWELL October 08, 2018 12:09
[2018-10-08 14:05] VITALS: BP 149/94; PULSE 67; RESP 16
--- NOTE | 2018-10-08 15:40 | PN ---
Date/Time of Note Date/Time of Note DATE: 10/08/18 TIME: 15:39 Assessment/Plan Lines/Catheters IV Catheter Type (from [facility]): Peripheral IV Turk in Place (from [facility]): No Assessment/Plan Chief Complaint/Hosp Course 1. 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 Cholelithiasis -As above 3. Abdominal pain: improved -Pain management 4. Leukocytosis: resolved -As above 5. Transaminitis with elevated bilirubin: -Trend -As above 6. Hypoalbuminemia with hypocalcemia: -Eventual nutrition optimization -Treat infections 7. Obesity: BMI: 33 -diet and exercise optimization -encourage weight loss 8. Hypertension -Highly encourage weight loss -Nutrition and medication optimization Thank you. Patient seen and examined in collaboration with Dr. Matteo Pennington. Subjective 24 Hr Interval Summary Min temp. No chills, sob, congested cough, cp, palpitations, monsalve, dizziness, nausea, vomiting, diarrhea, dysuria. Exam/Review of Systems Vital Signs Vitals Vital Signs Date Temp Pulse Resp B/P (MAP) Pulse Ox O2 O2 Flow FiO2 Time Delivery Rate 10/08/18 98.7 67 16 149/94 97 Room Air 14:05 (112) Intake and Output 10/07/18 10/07/18 10/08/18 1515:00 23:00 07:00 IntakeIntake Total 1440 ml 1300 ml 820 ml BalanceBalance 1440 ml 1300 ml 820 ml Exam Free Text/Dictation Constitutional: alert, oriented Psych: no complaints, nl mood/affect Head: normocephalic, atraumatic Eyes: nl conjunctiva, EOMI, nl sclera ENMT: nl external ears & nose, nl lips & teeth, mucosa pink and moist Neck: supple, non-tender Respiratory: clear to auscultation, normal air movement; No congested cough, No labored breathing Cardiovascular: regular rate and rhythm, nl pulses; No edema Gastrointestinal: soft, tender (min), obese, no rebound/guarding/rigidity Musculoskeletal: nl extremities to inspection, nl gait and stance Extremities: normal pulses; No pitting pedal edema Neurological: nl mental status, nl speech, nl strength Skin: No rash or lesions Results Result Diagram: 10/08/18 0458 10/08/18 0458 SELVIN PÉREZ NP October 08, 2018 15:40
--- NOTE | 2018-10-08 16:08 | CONS ---
Assessment/Plan Assessment/Plan Assessment/Plan (Daily) IMPRESSION: 1. Biliary pancreatitis which is almost resolved. 2. Multiple gallstones. 3. Hypertension. 4. Mild obesity. Plan Patient definitely needs lap nimisha for recurrent attack of biliary pancreatitis Consultation Date/Type/Reason Admit Date/Time October 05, 2018 at 00:42 Initial Consult Date Date/Time of Note DATE: 10/08/18 TIME: 16:08 24 HR Interval Summary Constitutional: no complaints, improved Exam/Review of Systems Exam Vitals Vital Signs Date Temp Pulse Resp B/P (MAP) Pulse Ox O2 O2 Flow FiO2 Time Delivery Rate 10/08/18 98.7 67 16 149/94 97 Room Air 14:05 (112) Intake and Output 10/07/18 10/07/18 10/08/18 1515:00 23:00 07:00 IntakeIntake Total 1440 ml 1300 ml 820 ml BalanceBalance 1440 ml 1300 ml 820 ml Constitutional: alert, oriented, well developed Psych: no complaints, nl mood/affect Head: normocephalic, atraumatic Eyes: nl conjunctiva, EOMI, nl lids, nl sclera, PERRL ENMT: nl external ears & nose, nl lips & teeth, nl nasal mucosa & septum Neck: supple, non-tender Respiratory: clear to auscultation, normal air movement Cardiovascular: regular rate and rhythm, nl pulses Gastrointestinal: soft, nl liver, spleen, non-tender Musculoskeletal: nl extremities to inspection, nl gait and stance Extremities: normal pulses Neurological: YARD ATTENDANT II-XII intact, nl mental status, nl speech, nl strength Skin: nl turgor; No rash or lesions Lymph: nl lymph nodes Results Result Diagram: 10/08/18 0458 10/08/18 0458 Results 24hrs Laboratory Tests Test 10/08/18 04:58 White Blood Count 7.8 Red Blood Count 4.80 Hemoglobin 14.9 Hematocrit 43.0 Mean Corpuscular Volume 89.6 Mean Corpuscular Hemoglobin 31.0 Mean Corpuscular Hemoglobin Concent 34.7 Red Cell Distribution Width 12.2 Platelet Count 175 Mean Platelet Volume 12.1 H Immature Granulocytes % 0.400 Neutrophils % 45.9 Lymphocytes % 33.2 Monocytes % 11.1 H Eosinophils % 8.8 H Basophils % 0.6 Nucleated Red Blood Cells % 0.0 Immature Granulocytes # 0.030 Neutrophils # 3.6 Lymphocytes # 2.6 Monocytes # 0.9 Eosinophils # 0.7 H Basophils # 0.1 Nucleated Red Blood Cells # 0.0 Sodium Level 142 Potassium Level 4.1 Chloride Level 107 Carbon Dioxide Level 26 Anion Gap 9 Blood Urea Nitrogen 9 Creatinine 0.53 L Est Glomerular Filtrat Rate mL/min > 60 Glucose Level 106 Calcium Level 9.1 Total Bilirubin 0.7 Direct Bilirubin 0.00 Indirect Bilirubin 0.7 Aspartate Amino Transf (AST/SGOT) 24 Alanine Aminotransferase (ALT/SGPT) 72 H Alkaline Phosphatase 120 Total Protein 6.7 Albumin 3.6 Globulin 3.10 Albumin/Globulin Ratio 1.16 Lipase 183 Medications Medication Current Medications Morphine Sulfate (morphine) 2 mg Q6 PRN IV SEVERE PAIN LEVEL 7-10 Last administered on 10/05/18 06:41; Admin Dose 2 MG; Start 10/05/18 at 06:00 Ondansetron HCl (Zofran Inj) 4 mg Q6H PRN IV NAUSEA AND/OR VOMITING; Start 10/05/18 at 06:00 Dextrose/Sodium Chloride 1,000 ml @ 20 mls/hr Q24H IV Last administered on 10/07/18 14:08; Admin Dose 20 MLS/HR; Start 10/05/18 at 06:00 Pantoprazole (Protonix Iv) 40 mg DAILY@06 IV Last administered on 10/08/18 05:30; Admin Dose 40 MG; Start 10/05/18 at 06:00 Ceftriaxone Sodium 50 ml @ 100 mls/hr Q24H IVPB Last administered on 10/08/18 09:00; Admin Dose 100 MLS/HR; Start 10/05/18 at 09:00 Metronidazole 100 ml @ 100 mls/hr Q8 IVPB Last administered on 10/08/18 14:49; Admin Dose 100 MLS/HR; Start 10/05/18 at 16:00 Hydralazine HCl (Apresoline) 10 mg Q6H PRN IV SBP above 160; Start 10/06/18 at 15:00 PRABHA WAYNE MD October 08, 2018 16:08
[2018-10-08 19:43] VITALS: BP 150/94; PULSE 73; RESP 18
[2018-10-09] VITALS (15 sets, daily range): BP systolic 127–159; BP diastolic 77–88; PULSE 56–88; RESP 16–22
[2018-10-09] MEDS: metroNIDAZOLE 500 MG/NS (PMX) 100 ML IVPB SCH ×3 (05:34→22:05)
[2018-10-09] MEDS: PANTOPRAZOLE 40 MG INJ IV SCH (05:34)
[2018-10-09] MEDS: CEFTRIAXONE 1 GM/50 ML (PMX) 50 ML IVPB SCH (08:26)
--- NOTE | 2018-10-09 10:52 | PN ---
Date/Time of Note Date/Time of Note DATE: 10/09/18 TIME: 10:49 Assessment/Plan Lines/Catheters IV Catheter Type (from [facility]): Peripheral IV Turk in Place (from [facility]): No Assessment/Plan Chief Complaint/Hosp Course 1. 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 No OR time available for today > awaiting response from OR -clear liquids ok -cholecystectomy pending OR availability 2. Cholelithiasis -As above 3. Abdominal pain: improved -Pain management 4. Leukocytosis: resolved -As above 5. Transaminitis with elevated bilirubin: -Trend -As above 6. Hypoalbuminemia with hypocalcemia: -Eventual nutrition optimization -Treat infections 7. Obesity: BMI: 33 -diet and exercise optimization -encourage weight loss 8. Hypertension -Highly encourage weight loss -Nutrition and medication optimization Thank you Subjective 24 Hr Interval Summary Awaiting OR time for today > thus far telling us no time available despite request placed on Tuesday. No fevers, chills, sob, congested cough, cp, palpitations, monsalve, dizziness, nausea, vomiting, diarrhea, dysuria. Pain improved Exam/Review of Systems Vital Signs Vitals Vital Signs Date Temp Pulse Resp B/P (MAP) Pulse Ox O2 O2 Flow FiO2 Time Delivery Rate 10/09/18 98.6 56 16 152/82 98 14:05 (105) 10/08/18 Room Air 14:05 Intake and Output 10/08/18 10/08/18 10/09/18 1515:00 23:00 07:00 IntakeIntake Total 1540 ml 850 ml 420 ml BalanceBalance 1540 ml 850 ml 420 ml Exam Free Text/Dictation Constitutional: alert, oriented Psych: no complaints, nl mood/affect Head: normocephalic, atraumatic Eyes: nl conjunctiva, EOMI, nl sclera ENMT: nl external ears & nose, nl lips & teeth, mucosa pink and moist Neck: supple, non-tender Respiratory: clear to auscultation, normal air movement; No congested cough, No labored breathing Cardiovascular: regular rate and rhythm, nl pulses; No edema Gastrointestinal: soft, tender (min), obese, no rebound/guarding/rigidity Musculoskeletal: nl extremities to inspection, nl gait and stance Extremities: normal pulses; No pitting pedal edema Neurological: nl mental status, nl speech, nl strength Skin: No rash or lesions Results Result Diagram: 10/08/18 0458 10/08/18 0458 KORY MCKINNEY MD October 09, 2018 10:52
[2018-10-09] MEDS: DEXTROSE 5%-0.45% NACL 1,000 ML IV SCH (12:15)
--- NOTE | 2018-10-09 13:48 | PN ---
Date/Time of Note Date/Time of Note DATE: 10/09/18 TIME: 13:45 Assessment/Plan VTE Prophylaxis Risk score (from [facility])>0 risk: 2 SCD applied (from [facility]): No SCD contraindicated: low risk/ambulating Pharmacological prophylaxis: NA/contraindicated Pharm contraindication: low risk/ambulating Lines/Catheters IV Catheter Type (from [facility]): Peripheral IV Urinary Cath still in place: No Assessment/Plan Assessment/Plan 58 y/o with 1. Recurrent episodes of gallstone pancreatitis. 2. Cholelithiasis. 3. Leukocytosis secondary to #1, resolved 4. Abnormal LFTs and elevated bilirubin secondary to #1, resolving 5. Hypoalbuminemia. 6. Hypertension. 7. Obesity. Assessment/Plan -Lap nimisha today -GI consult dr Pacheco appreciated -c/w IV fluid -c/w pain control, -c/w IV antibiotics. -GI prophylaxis Protonix -DVT proph. SCD. , ambulation Result Diagram: 10/08/188 10/08/18457 Results 24hrs Laboratory Tests Test 10/08/18 15:57 Prothrombin Time 15.7 H Prothrombin Time Ratio 1.2 INR International Normalized Ratio 1.24 Subjective 24 Hr Interval Summary Free Text/Dictation surgery scheduled today npo today Exam/Review of Systems Exam Vitals Vital Signs Date Temp Pulse Resp B/P (MAP) Pulse Ox O2 O2 Flow FiO2 Time Delivery Rate 10/09/18 98.1 58 16 148/86 97 08:05 (106) 10/08/18 Room Air 14:05 Intake and Output 10/08/18 10/08/18 10/09/18 1515:00 23:00 07:00 IntakeIntake Total 1540 ml 850 ml 420 ml BalanceBalance 1540 ml 850 ml 420 ml Exam Constitutional: alert, oriented Respiratory: clear to auscultation Cardiovascular: regular rate and rhythm Gastrointestinal: soft Results Results 24hrs Laboratory Tests Test 10/08/18 15:57 Prothrombin Time 15.7 H Prothrombin Time Ratio 1.2 INR International Normalized Ratio 1.24 Medications Medication Current Medications Morphine Sulfate (morphine) 2 mg Q6 PRN IV SEVERE PAIN LEVEL 7-10 Last administered on 10/05/18at 06:41; Admin Dose 2 MG; Start 10/05/18 at 06:00 Ondansetron HCl (Zofran Inj) 4 mg Q6H PRN IV NAUSEA AND/OR VOMITING; Start 10/05/18 at 06:00 Dextrose/Sodium Chloride 1,000 ml @ 20 mls/hr Q24H IV Last administered on 10/09/18at 12:15; Admin Dose 20 MLS/HR; Start 10/05/18 at 06:00 Pantoprazole (Protonix Iv) 40 mg DAILY@06 IV Last administered on 10/09/18at 05:34; Admin Dose 40 MG; Start 10/05/18 at 06:00 Ceftriaxone Sodium 50 ml @ 100 mls/hr Q24H IVPB Last administered on 10/09/18at 08:26; Admin Dose 100 MLS/HR; Start 10/05/18 at 09:00 Metronidazole 100 ml @ 100 mls/hr Q8 IVPB Last administered on 10/09/18at 05:34; Admin Dose 100 MLS/HR; Start 10/05/18 at 16:00 Hydralazine HCl (Apresoline) 10 mg Q6H PRN IV SBP above 160; Start 10/06/18 at 15:00 KOFI METZGER MD October 09, 2018 13:48
--- NOTE | 2018-10-09 15:34 | CONS ---
Assessment/Plan Assessment/Plan Assessment/Plan (Daily) Assessment/Plan Assessment/Plan Assessment/Plan (Daily) IMPRESSION: 1. Biliary pancreatitis which is almost resolved. 2. Multiple gallstones. 3. Hypertension. 4. Mild obesity. Plan Patient definitely needs lap nimisha for recurrent attack of biliary pancreatitis patient is scheduled for surgery today Consultation Date/Type/Reason Admit Date/Time October 05, 2018 at 00:42 Initial Consult Date Date/Time of Note DATE: 10/09/18 TIME: 15:33 24 HR Interval Summary Constitutional: no complaints, improved Exam/Review of Systems Exam Vitals Vital Signs Date Temp Pulse Resp B/P (MAP) Pulse Ox O2 O2 Flow FiO2 Time Delivery Rate 10/09/18 98.6 56 16 152/82 98 14:05 (105) 10/08/18 Room Air 14:05 Intake and Output 10/08/18 10/08/18 10/09/18 1515:00 23:00 07:00 IntakeIntake Total 1540 ml 850 ml 420 ml BalanceBalance 1540 ml 850 ml 420 ml Constitutional: alert, oriented, well developed Psych: no complaints, nl mood/affect Head: normocephalic, atraumatic Eyes: nl conjunctiva, EOMI, nl lids, nl sclera, PERRL ENMT: nl external ears & nose, nl lips & teeth, nl nasal mucosa & septum Neck: supple, non-tender Respiratory: clear to auscultation, normal air movement Cardiovascular: regular rate and rhythm, nl pulses Gastrointestinal: soft, nl liver, spleen, non-tender Musculoskeletal: nl extremities to inspection, nl gait and stance Extremities: normal pulses Neurological: CYBER ANALYST II-XII intact, nl mental status, nl speech, nl strength Skin: nl turgor; No rash or lesions Lymph: nl lymph nodes Results Result Diagram: 10/08/18 0458 10/08/18 0458 Results 24hrs Laboratory Tests Test 10/08/18 15:57 Prothrombin Time 15.7 H Prothrombin Time Ratio 1.2 INR International Normalized Ratio 1.24 Medications Medication Current Medications Morphine Sulfate (morphine) 2 mg Q6 PRN IV SEVERE PAIN LEVEL 7-10 Last administered on 10/05/18at 06:41; Admin Dose 2 MG; Start 10/05/18 at 06:00 Ondansetron HCl (Zofran Inj) 4 mg Q6H PRN IV NAUSEA AND/OR VOMITING; Start 10/05/18 at 06:00 Dextrose/Sodium Chloride 1,000 ml @ 20 mls/hr Q24H IV Last administered on 10/09/18at 12:15; Admin Dose 20 MLS/HR; Start 10/05/18 at 06:00 Pantoprazole (Protonix Iv) 40 mg DAILY@06 IV Last administered on 10/09/18 05:34; Admin Dose 40 MG; Start 10/05/18 at 06:00 Ceftriaxone Sodium 50 ml @ 100 mls/hr Q24H IVPB Last administered on 10/09/18at 08:26; Admin Dose 100 MLS/HR; Start 10/05/18 at 09:00 Metronidazole 100 ml @ 100 mls/hr Q8 IVPB Last administered on 10/09/18at 14:07; Admin Dose 100 MLS/HR; Start 10/05/18 at 16:00 Hydralazine HCl (Apresoline) 10 mg Q6H PRN IV SBP above 160; Start 10/06/18 at 15:00 PRABHA WAYNE MD October 09, 2018 15:34
[2018-10-09] MEDS ORDERED: LIDOCAINE 1% (MPF) 30 ML INJ ONE (16:34)
[2018-10-09] MEDS ORDERED: BUPIVACAINE 0.25%/EPI (SDV) 30 ML INJ ONE (16:34)
--- NOTE | 2018-10-09 19:14 | PREAC ---
Date/Time of Note Date/Time of Note DATE: 10/09/18 TIME: 19:13 Anesthesia Eval and Record Evaluation Time Pre-Procedure Interview DATE: 10/09/18 TIME: 19:13 Age 58 Sex male NPO: 8 hrs Preoperative diagnosis CHOLELITHIASIS Planned procedure LAPAROSCOPIC CHOLECYSTECTOMY Past Medical History Past Medical History: Includes Cardio: HTN GI: Obesity Surgery & Anesthesia Issues No known issue Meds Anticoagulation: No Beta Antonio within 24 hr: No Reason Beta Antonio not given: Pt. not on B-Antonio Discontinued Scripts Metronidazole* (Flagyl*) 500 Mg Tablet, 500 MG PO Q8 for 4 Days, TAB Prov:KOFI METZGER MD 05/31/18 Ciprofloxacin Hcl* (Ciprofloxacin Hcl*) 500 Mg Tablet, 500 MG PO BID for 4 Days, #14 TAB Prov:KOFI METZGER MD 05/31/18 Current Medications Morphine Sulfate (morphine) 2 mg Q6 PRN IV SEVERE PAIN LEVEL 7-10 Last administered on 10/05/18at 06:41; Admin Dose 2 MG; Start 10/05/18 at 06:00 Ondansetron HCl (Zofran Inj) 4 mg Q6H PRN IV NAUSEA AND/OR VOMITING; Start 10/05/18 at 06:00 Dextrose/Sodium Chloride 1,000 ml @ 20 mls/hr Q24H IV Last administered on 10/09/18at 12:15; Admin Dose 20 MLS/HR; Start 10/05/18 at 06:00 Pantoprazole (Protonix Iv) 40 mg DAILY@06 IV Last administered on 10/09/18at 05:34; Admin Dose 40 MG; Start 10/05/18 at 06:00 Ceftriaxone Sodium 50 ml @ 100 mls/hr Q24H IVPB Last administered on 10/09/18at 08:26; Admin Dose 100 MLS/HR; Start 10/05/18 at 09:00 Metronidazole 100 ml @ 100 mls/hr Q8 IVPB Last administered on 10/09/18at 14:07; Admin Dose 100 MLS/HR; Start 10/05/18 at 16:00 Hydralazine HCl (Apresoline) 10 mg Q6H PRN IV SBP above 160; Start 10/06/18 at 15:00 Meds reviewed: Yes Allergies Coded Allergies: No Known Allergy (Unverified , 10/05/18) Allergies Reviewed: Yes Labs/Studies Labs Reviewed: Reviewed by anesthesiologist Result Diagram: 10/08/18 0458 10/08/18 0458 test: N/A Pre-procedure Exam Last vitals Vital Signs Date Temp Pulse Resp B/P (MAP) Pulse Ox O2 O2 Flow FiO2 Time Delivery Rate 10/09/18 98.6 56 16 152/82 98 14:05 (105) 10/08/18 Room Air 14:05 Airway: Adequate mouth opening, Adequate thyromental dist Mallampati: Mallampati I Teeth: Normal Lung: Normal Heart: Normal ASA Physical Status ASA physical status: 2 Emergency: None Planned Anesthetic General/MAC: ETT Planned Pain Management Parenteral pain med Pre-operative Attestations Prior to commencing anesthesia and surgery, the patient was re-evaluated, there was verification of: *The patient's identity *The results of appropriate recent lab work and preoperative vital signs *The above evaluation not changing prior to induction *Anesthetic plan, risk benefits, alternative and complications discussed with patient/family; questions answered; patient/family understands, accepts and wishes to proceed. MIKA BENSON October 09, 2018 19:14
[2018-10-09] MEDS ORDERED: LIDOCAINE 2% (SDV) 5 ML INJ ONE (19:18)
[2018-10-09] MEDS ORDERED: ROCURONIUM 50 MG INJ ONE (19:18)
[2018-10-09] MEDS ORDERED: PROPOFOL 20 ML ONE (19:18)
--- NOTE | 2018-10-09 19:52 | OPR ---
Date/Time of Note Date/Time of Note DATE: 10/09/18 TIME: 19:50 Operative Report Free Text/Dictation Preoperative Diagnosis: Symptomatic cholelithiasis and gallstone pancreatitis BMI 33 Transaminitis and hyperbilirubinemia, improved Postoperative Diagnosis: Symptomatic cholelithiasis and gallstone pancreatitis BMI 33 Transaminitis and hyperbilirubinemia, improved Abnormal liver color Operation(s) Performed: 1. 3 port laparoscopic cholecystectomy 2. Laparoscopic liver wedge resection biopsy 3. Local anesthetic injection, [id number] 4. Laparoscopic guided bilateral transversus abdominis plane block Surgeon: Kory Mckinney MD Public Area Supervisor: None Anesthesia: general, local, & regional Anesthesiologist: Ca COX Estimated Blood Loss: 20 ml's Specimens: Gallbladder Liver Tubes/Drains: None Complications: None Pt Condition Post Procedure: stable Disposition: PACU Indications: 58-year-old male with gallstones, pancreatitis, and abdominal pain here for cholecystectomy. Risks include but are not limited to bleeding, infection, abscess, seroma, damage to intestines, damage to the liver, damage to biliary tree, hernia formation, chronic pain, biloma, need for reoperations or further surgeries, VA, stroke, PE, DVT, pneumonia, organ failures, or even . Procedure Description: Patient was brought and placed supine on the operating table SCDs were placed, preoperative antibiotics were administered, all pressure points were well- padded, and after induction of anesthesia patient was prepped and draped in usual sterile fashion and timeout was performed. Incision was made in the supraumbilical region, Veress was safely inserted, and after a negative SIP test, abdomen was insufflated to 15mmHg. Veress was removed and 5mm port was safely inserted. Laparoscopy was performed with a 5 mm 30 scope. No injuries were identified. The liver looks somewhat abnormal color. Gallbladder is without evidence of infection. 12 mm port is placed in subxiphoid under direct visualization followed by another 5 mm port in the right upper quadrant. All port sites were injected with quarter percent Marcaine with epi and 1% lidocaine prior to any incisions. Bilateral transversus abdominis plane block was performed under laparoscopic visualization to aid with pain control intra-and postoperatively. Patient was placed in reverse Trendelenburg and right side up on gallbladder was retracted superolaterally. The gallbladder was large and distended but without evidence of active infection. Using electrocautery and blunt dissection I was able to identify the cystic artery and cystic duct. The duct was small & tapered into the gallbladder. Full critical angle view was identified. Both structures were clipped twice proximally and once distally and transected. At this point, I found very tiny black sand like stones in the cystic duct. The gallbladder w as taken off the liver with electrocautery. Hemostasis was obtained. Gallbladder was placed in an Endo Catch bag and removed through the subxiphoid port site. There was complete hemostasis. Due to the abnormality of the liver decision was made to perform liver wedge resection which was done with electrocautery and scissor with complete hemostasis right after. The specimen was sent to pathology for further evaluation. 12 mm made port site fascia was closed with Endo Close of an 0 Vicryl in a [id number] manner. Ports and CO2 were removed under direct visualization. Next complete hemostasis. Wounds were thoroughly irrigated skin was closed with 4-0 Monocryl in subcuticular fashion. Mastizol and steristrips were applied. Patient was extubated and transferred to recovery room in stable condition and all counts were correct and the end of the operation 2. KORY MCKINNEY MD October 09, 2018 19:52
[2018-10-09] MEDS ORDERED: ONDANSETRON 4 MG INJ ONE (20:04)
[2018-10-09] MEDS ORDERED: DEXAMETHASONE 4 MG/ML 5 ML INJ ONE (20:04)
[2018-10-09] MEDS ORDERED: NEOSTIGMINE 3 MG/3 ML SYRINGE ONE (20:57)
[2018-10-09] MEDS ORDERED: GLYCOPYRROLATE 0.4 MG INJ ONE (20:57)
--- NOTE | 2018-10-09 21:08 | PAC ---
Date/Time of Note Date/Time of Note DATE: 10/09/18 TIME: 21:08 Post-Anesthesia Notes Post-Anesthesia Note Last documented vital signs Vital Signs Date Temp Pulse Resp B/P (MAP) Pulse Ox O2 O2 Flow FiO2 Time Delivery Rate 10/09/18 98.6 56 16 152/82 98 2108 (105) 10/08/18 Room Air 14:05 Activity: WNL Respiratory function: WNL Cardiovascular function: WNL Mental status: Baseline Pain reasonably controlled: Yes Hydration appropriate: Yes Nausea/Vomiting absent: Yes MIKA BENSON October 09, 2018 21:08
[2018-10-09] MEDS ORDERED: FENTAnyl 50 MCG/ML VIAL IV PRN ×3 (21:30)
[2018-10-09] MEDS ORDERED: HYDROCODONE/APAP (5/325) TAB PO PRN (21:30)
[2018-10-09] MEDS ORDERED: DIPHENHYDRAMINE 50 MG INJ IV PRN (21:30)
[2018-10-09] MEDS ORDERED: ALBUTEROL 0.083% (NEB) 2.5 MG/3 ML AMP HHN PRN (21:30)
[2018-10-09] MEDS ORDERED: ACETAMINOPHEN 500 MG TAB PO PRN (21:30)
[2018-10-09] MEDS ORDERED: OXYCODONE/ACETAMINOPHEN (5/325) TAB PO PRN ×2 (21:30)
[2018-10-09] MEDS ORDERED: EPHEDrine SULFATE 50 MG/5 ML SYG IV PRN (21:30)
[2018-10-09] MEDS ORDERED: KETOROLAC 30 MG INJ IV PRN (21:30)
[2018-10-09] MEDS ORDERED: ONDANSETRON 4 MG INJ IV PRN ×2 (21:30)
[2018-10-09] MEDS ORDERED: LABETALOL HCL 20MG INJ IV PRN (21:30)
[2018-10-09] MEDS ORDERED: hydrALAzine 20 MG INJ IV PRN (21:30)
[2018-10-09] MEDS ORDERED: HYDROmorphONE 1 MG/5 ML IV SYRINGE IV PRN ×3 (21:30)
[2018-10-09] MEDS ORDERED: METOCLOPRAMIDE 10 MG INJ IV PRN (21:30)
[2018-10-09] MEDS ORDERED: MEPERIDINE 25 MG INJ IV PRN (21:30)
[2018-10-09] MEDS ORDERED: MIDAZOLAM 1 MG/ML 2 ML INJ IV PRN (21:30)
[2018-10-10 01:34] VITALS: BP 140/85; PULSE 95; RESP 18
[2018-10-10] MEDS: morphine 2 MG INJ IV PRN (03:15)
[2018-10-10] MEDS: metroNIDAZOLE 500 MG/NS (PMX) 100 ML IVPB SCH ×3 (05:17→21:32)
[2018-10-10] MEDS: PANTOPRAZOLE (EC) 40 MG TAB PO SCH (05:17)
[2018-10-10 07:41] VITALS: BP 139/79; PULSE 90; RESP 16
[2018-10-10] MEDS: CEFTRIAXONE 1 GM/50 ML (PMX) 50 ML IVPB SCH (08:42)
--- NOTE | 2018-10-10 10:13 | PN ---
Date/Time of Note Date/Time of Note DATE: 10/10/18 TIME: 10:08 Assessment/Plan Lines/Catheters IV Catheter Type (from [facility]): Peripheral IV Turk in Place (from [facility]): No Assessment/Plan Chief Complaint/Hosp Course 1. Recurrent pancreatitis: Symptomatic cholelithiasis, gallstone pancreatitis, cystic duct tiny sand-like black stones possible CBD stones status post lap scopic cholecystectomy 10/09/2018; Repeat CT noted: minimal improvement; lipase normalized -IS -ambulate -ice pack to abdominal wall -advance diet as tolerated -if no ercp, dc ok from surgical standpoint with fu in office in 2 weeks. Pt to call for appt. 2. Cholelithiasis -As above 3. Abdominal pain: improved -Pain management 4. Leukocytosis: resolved -As above 5. Transaminitis with elevated bilirubin: -Trend -As above 6. Hypoalbuminemia with hypocalcemia: -Eventual nutrition optimization -Treat infections 7. Obesity: BMI: 33 -diet and exercise optimization -encourage weight loss 8. Hypertension -Highly encourage weight loss -Nutrition and medication optimization Thank you. Patient seen and examined in collaboration with Dr. Matteo Pennington. Subjective 24 Hr Interval Summary Feels well. Status post lap nimisha. No fevers, chills, sob, congested cough, cp, palpitations, monsalve, dizziness, nausea, vomiting, diarrhea, dysuria. Exam/Review of Systems Vital Signs Vitals Vital Signs Date Temp Pulse Resp B/P (MAP) Pulse Ox O2 O2 Flow FiO2 Time Delivery Rate 10/10/18 98.9 90 16 139/79 96 07:41 (99) 10/10/18 Nasal 07:36 Cannula 10/09/18 2.0 22:19 Intake and Output 10/09/18 10/09/18 10/10/18 1414:59 22:59 06:59 IntakeIntake Total 150 ml 970 ml 380 ml OutputOutput Total 20 ml BalanceBalance 150 ml 950 ml 380 ml Exam Free Text/Dictation Constitutional: alert, oriented Psych: no complaints, nl mood/affect Head: normocephalic, atraumatic Eyes: nl conjunctiva, EOMI, nl sclera ENMT: nl external ears & nose, nl lips & teeth, mucosa pink and moist Neck: supple, non-tender Respiratory: clear to auscultation, normal air movement; No congested cough, No labored breathing Cardiovascular: regular rate and rhythm, nl pulses; No edema Gastrointestinal: soft, tender (min: toribio-incisional sites; incision sites dry w/o drainage/discoloration/bruising), obese, no rebound/guarding/rigidity Musculoskeletal: nl extremities to inspection, nl gait and stance Extremities: normal pulses; No pitting pedal edema Neurological: nl mental status, nl speech, nl strength Skin: No rash or lesions Results Result Diagram: 10/10/18 0444 10/10/18 0444 SELVIN PÉREZ NP October 10, 2018 10:13
[2018-10-10] MEDS: DEXTROSE 5%-0.45% NACL 1,000 ML IV SCH (11:36)
--- NOTE | 2018-10-10 13:09 | PN ---
Date/Time of Note Date/Time of Note DATE: 10/10/18 TIME: 13:09 Assessment/Plan VTE Prophylaxis Risk score (from [facility])>0 risk: 3 SCD applied (from [facility]): Yes Pharmacological prophylaxis: NA/contraindicated Pharm contraindication: low risk/ambulating Lines/Catheters IV C[facility]ter Type (from [facility]): Peripheral IV Urinary Cath still in place: No Assessment/Plan Hospital Course 1. Recurrent episodes of gallstone pancreatitis.s/p lap choleon 10/19 noted to some pigment stone sleft in cystic duct 2. Cholelithiasis. 3. Leukocytosis secondary to #1, resolved 4. Abnormal LFTs and elevated bilirubin secondary to #1, resolving 5. Hypoalbuminemia. 6. Hypertension. 7. Obesity. Assessment/Plan sp -Lap nimisha pod#1 - some pigment stone in cystic /bile duct per surgery op note > ERCP per GI -c/w pain control, -c/w IV antibiotics. -GI prophylaxis Protonix -DVT proph. SCD. , ambulation Result Diagram: 10/10/18 0444 10/10/18443 Results 24hrs Laboratory Tests Test 10/10/18 04:44 White Blood Count 8.8 Red Blood Count 4.98 Hemoglobin 15.7 Hematocrit 45.1 Mean Corpuscular Volume 90.6 Mean Corpuscular Hemoglobin 31.5 Mean Corpuscular Hemoglobin Concent 34.8 Red Cell Distribution Width 11.8 Platelet Count 205 Mean Platelet Volume 12.1 H Immature Granulocytes % 0.500 H Neutrophils % 90.7 H Lymphocytes % 7.2 L Monocytes % 1.5 Eosinophils % 0.0 Basophils % 0.1 Nucleated Red Blood Cells % 0.0 Immature Granulocytes # 0.040 H Neutrophils # 7.9 H Lymphocytes # 0.6 L Monocytes # 0.1 L Eosinophils # 0.0 Basophils # 0.0 Nucleated Red Blood Cells # 0.0 Sodium Level 140 Potassium Level 4.7 Chloride Level 102 Carbon Dioxide Level 27 Anion Gap 11 Blood Urea Nitrogen 10 Creatinine 0.58 L Est Glomerular Filtrat Rate mL/min > 60 Glucose Level 197 Calcium Level 9.7 Total Bilirubin 0.3 Direct Bilirubin 0.00 Indirect Bilirubin 0.3 Aspartate Amino Transf (AST/SGOT) 77 #H Alanine Aminotransferase (ALT/SGPT) 79 H Alkaline Phosphatase 133 H Total Protein 7.2 Albumin 4.1 Globulin 3.10 Albumin/Globulin Ratio 1.32 Lipase 67 Subjective 24 Hr Interval Summary Free Text/Dictation Abdominal pain improved Exam/Review of Systems Exam Vitals Vital Signs Date Temp Pulse Resp B/P (MAP) Pulse Ox O2 O2 Flow FiO2 Time Delivery Rate 10/10/18 98.9 90 16 139/79 96 07:41 (99) 10/10/18 Nasal 07:36 Cannula 10/09/18 2.0 22:19 Intake and Output 10/09/18 10/09/18 10/10/18 1515:00 23:00 07:00 IntakeIntake Total 150 ml 1070 ml 280 ml OutputOutput Total 20 ml BalanceBalance 150 ml 1050 ml 280 ml Exam abdomen :benign Results Results 24hrs Laboratory Tests Test 10/10/18 04:44 White Blood Count 8.8 Red Blood Count 4.98 Hemoglobin 15.7 Hematocrit 45.1 Mean Corpuscular Volume 90.6 Mean Corpuscular Hemoglobin 31.5 Mean Corpuscular Hemoglobin Concent 34.8 Red Cell Distribution Width 11.8 Platelet Count 205 Mean Platelet Volume 12.1 H Immature Granulocytes % 0.500 H Neutrophils % 90.7 H Lymphocytes % 7.2 L Monocytes % 1.5 Eosinophils % 0.0 Basophils % 0.1 Nucleated Red Blood Cells % 0.0 Immature Granulocytes # 0.040 H Neutrophils # 7.9 H Lymphocytes # 0.6 L Monocytes # 0.1 L Eosinophils # 0.0 Basophils # 0.0 Nucleated Red Blood Cells # 0.0 Sodium Level 140 Potassium Level 4.7 Chloride Level 102 Carbon Dioxide Level 27 Anion Gap 11 Blood Urea Nitrogen 10 Creatinine 0.58 L Est Glomerular Filtrat Rate mL/min > 60 Glucose Level 197 Calcium Level 9.7 Total Bilirubin 0.3 Direct Bilirubin 0.00 Indirect Bilirubin 0.3 Aspartate Amino Transf (AST/SGOT) 77 #H Alanine Aminotransferase (ALT/SGPT) 79 H Alkaline Phosphatase 133 H Total Protein 7.2 Albumin 4.1 Globulin 3.10 Albumin/Globulin Ratio 1.32 Lipase 67 Medications Medication Current Medications Morphine Sulfate (morphine) 2 mg Q6 PRN IV SEVERE PAIN LEVEL 7-10 Last administered on 10/10/18at 03:15; Admin Dose 2 MG; Start 10/05/18 at 06:00 Dextrose/Sodium Chloride 1,000 ml @ 20 mls/hr Q24H IV Last administered on 10/09/18at 12:15; Admin Dose 20 MLS/HR; Start 10/05/18 at 06:00 Ceftriaxone Sodium 50 ml @ 100 mls/hr Q24H IVPB Last administered on 10/10/18at 08:42; Admin Dose 100 MLS/HR; Start 10/05/18 at 09:00 Metronidazole 100 ml @ 100 mls/hr Q8 IVPB Last administered on 10/10/18at 05:17; Admin Dose 100 MLS/HR; Start 10/05/18 at 16:00 Hydralazine HCl (Apresoline) 10 mg Q6H PRN IV SBP above 160; Start 10/06/18 at 15:00 Acetaminophen/ Hydrocodone Bitart ([place] (5/325)) 1 tab Q6H PRN PO PAIN LEVEL 4-6; Start 10/09/18 at 21:30 Acetaminophen (Tylenol Tab) 500 mg Q6H PRN PO MILD PAIN(1-3)OR ELEVATED TEMP; Start 10/09/18 at 21:30 Ondansetron HCl (Zofran Inj) 4 mg Q6H PRN IV NAUSEA AND/OR VOMITING; Start 10/09/18 at 21:30 Pantoprazole (Protonix Tab) 40 mg DAILY@06 PO Last administered on 10/10/18at 05:17; Admin Dose 40 MG; Start 10/10/18 at 06:00 KOFI METZGER MD October 10, 2018 13:09
[2018-10-10 14:48] VITALS: BP 149/84; PULSE 59; PULSE 86; RESP 16
--- NOTE | 2018-10-10 18:23 | CONS ---
Assessment/Plan Assessment/Plan Assessment/Plan (Daily) Assessment/Plan Assessment/Plan (Daily) IMPRESSION: 1. Biliary pancreatitis which is almost resolved. 2. Multiple gallstones. 3. Hypertension. 4. Mild obesity. 5. Patient may have small bile duct stone or cystic duct stone which was observed in the OR during laparoscopic procedure Plan Patient definitely needs lap nimisha for recurrent attack of biliary pancreatitis patient is scheduled for ERCP tomorrow Consultation Date/Type/Reason Admit Date/Time October 05, 2018 at 00:42 Initial Consult Date Date/Time of Note DATE: 10/10/18 TIME: 18:22 24 HR Interval Summary Constitutional: no complaints, improved Exam/Review of Systems Exam Vitals Vital Signs Date Temp Pulse Resp B/P (MAP) Pulse Ox O2 O2 Flow FiO2 Time Delivery Rate 10/10/18 97.9 59 16 149/84 94 14:48 (105) 86 10/10/18 Nasal 07:36 Cannula 10/09/18 2.0 22:19 Intake and Output 10/09/18 10/09/18 10/10/18 1515:00 23:00 07:00 IntakeIntake Total 150 ml 1070 ml 280 ml OutputOutput Total 20 ml BalanceBalance 150 ml 1050 ml 280 ml Constitutional: alert, oriented, well developed Psych: no complaints, nl mood/affect Head: normocephalic, atraumatic Eyes: nl conjunctiva, EOMI, nl lids, nl sclera, PERRL ENMT: nl external ears & nose, nl lips & teeth, nl nasal mucosa & septum Neck: supple, non-tender Respiratory: clear to auscultation, normal air movement Cardiovascular: regular rate and rhythm, nl pulses Gastrointestinal: soft, nl liver, spleen, non-tender Musculoskeletal: nl extremities to inspection, nl gait and stance Extremities: normal pulses Neurological: 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 intact, nl mental status, nl speech, nl strength Skin: nl turgor; No rash or lesions Lymph: nl lymph nodes Results Result Diagram: 10/10/1844310/10/184 Results 24hrs Laboratory Tests Test 10/10/18 04:44 White Blood Count 8.8 Red Blood Count 4.98 Hemoglobin 15.7 Hematocrit 45.1 Mean Corpuscular Volume 90.6 Mean Corpuscular Hemoglobin 31.5 Mean Corpuscular Hemoglobin Concent 34.8 Red Cell Distribution Width 11.8 Platelet Count 205 Mean Platelet Volume 12.1 H Immature Granulocytes % 0.500 H Neutrophils % 90.7 H Lymphocytes % 7.2 L Monocytes % 1.5 Eosinophils % 0.0 Basophils % 0.1 Nucleated Red Blood Cells % 0.0 Immature Granulocytes # 0.040 H Neutrophils # 7.9 H Lymphocytes # 0.6 L Monocytes # 0.1 L Eosinophils # 0.0 Basophils # 0.0 Nucleated Red Blood Cells # 0.0 Sodium Level 140 Potassium Level 4.7 Chloride Level 102 Carbon Dioxide Level 27 Anion Gap 11 Blood Urea Nitrogen 10 Creatinine 0.58 L Est Glomerular Filtrat Rate mL/min > 60 Glucose Level 197 Calcium Level 9.7 Total Bilirubin 0.3 Direct Bilirubin 0.00 Indirect Bilirubin 0.3 Aspartate Amino Transf (AST/SGOT) 77 #H Alanine Aminotransferase (ALT/SGPT) 79 H Alkaline Phosphatase 133 H Total Protein 7.2 Albumin 4.1 Globulin 3.10 Albumin/Globulin Ratio 1.32 Lipase 67 Medications Medication Current Medications Morphine Sulfate (morphine) 2 mg Q6 PRN IV SEVERE PAIN LEVEL 7-10 Last administered on 10/10/18at 03:15; Admin Dose 2 MG; Start 10/05/18 at 06:00 Dextrose/Sodium Chloride 1,000 ml @ 20 mls/hr Q24H IV Last administered on 10/09/18at 12:15; Admin Dose 20 MLS/HR; Start 10/05/18 at 06:00 Ceftriaxone Sodium 50 ml @ 100 mls/hr Q24H IVPB Last administered on 10/10/18at 08:42; Admin Dose 100 MLS/HR; Start 10/05/18 at 09:00 Metronidazole 100 ml @ 100 mls/hr Q8 IVPB Last administered on 10/10/18at 15:32; Admin Dose 100 MLS/HR; Start 10/05/18 at 16:00 Hydralazine HCl (Apresoline) 10 mg Q6H PRN IV SBP above 160; Start 10/06/18 at 15:00 Acetaminophen/ Hydrocodone Bitart ([place] (5/325)) 1 tab Q6H PRN PO PAIN LEVEL 4-6; Start 10/09/18 at 21:30 Acetaminophen (Tylenol Tab) 500 mg Q6H PRN PO MILD PAIN(1-3)OR ELEVATED TEMP; Start 10/09/18 at 21:30 Ondansetron HCl (Zofran Inj) 4 mg Q6H PRN IV NAUSEA AND/OR VOMITING; Start 10/09/18 at 21:30 Pantoprazole (Protonix Tab) 40 mg DAILY@06 PO Last administered on 10/10/18at 05:17; Admin Dose 40 MG; Start 10/10/18 at 06:00 PRABHA WAYNE MD October 10, 2018 18:23
[2018-10-10 19:36] VITALS: BP 149/85; PULSE 63; RESP 18
[2018-10-11] VITALS (10 sets, daily range): BP systolic 125–162; BP diastolic 79–91; PULSE 54–88; RESP 16–20
[2018-10-11] MEDS: PANTOPRAZOLE (EC) 40 MG TAB PO SCH (05:26)
[2018-10-11] MEDS: metroNIDAZOLE 500 MG/NS (PMX) 100 ML IVPB SCH ×3 (05:26→22:02)
[2018-10-11] MEDS ORDERED: ONDANSETRON 4 MG INJ ONE (07:00)
[2018-10-11] MEDS: CEFTRIAXONE 1 GM/50 ML (PMX) 50 ML IVPB SCH (08:56)
--- NOTE | 2018-10-11 11:35 | PN ---
Date/Time of Note Date/Time of Note DATE: 10/11/18 TIME: 11:32 Assessment/Plan Lines/Catheters IV Catheter Type (from [facility]): Peripheral IV Turk in Place (from [facility]): No Assessment/Plan Chief Complaint/Hosp Course 1. Recurrent pancreatitis: Symptomatic cholelithiasis, gallstone pancreatitis, cystic duct tiny sand-like black stones possible CBD stones status post lap scopic cholecystectomy 10/09/2018; Repeat CT noted: minimal improvement; lipase normalized -IS -ambulate -ice pack to abdominal wall -advance diet as tolerated -pending ercp today 2. Cholelithiasis -As above 3. Abdominal pain: improved -Pain management 4. Leukocytosis: resolved -As above 5. Transaminitis with elevated bilirubin: resolved -Trend -As above 6. Hypoalbuminemia with hypocalcemia: -Eventual nutrition optimization -Treat infections 7. Obesity: BMI: 33 -diet and exercise optimization -encourage weight loss 8. Hypertension -Highly encourage weight loss -Nutrition and medication optimization Thank you. Patient seen and examined in collaboration with Dr. Matteo Pennington. Subjective 24 Hr Interval Summary Feels well. ERCP today. No fevers, chills, sob, congested cough, cp, palpitations, monsalve, dizziness, n/v/d/dysuria. Exam/Review of Systems Vital Signs Vitals Vital Signs Date Temp Pulse Resp B/P (MAP) Pulse Ox O2 O2 Flow FiO2 Time Delivery Rate 10/11/18 98.1 54 17 139/84 94 Room Air 07:55 (102) 10/09/18 2.0 22:19 Intake and Output 10/10/18 10/10/18 10/11/18 1515:00 23:00 07:00 IntakeIntake Total 960 ml 1270 ml 280 ml BalanceBalance 960 ml 1270 ml 280 ml Exam Free Text/Dictation Constitutional: alert, oriented Psych: no complaints, nl mood/affect Head: normocephalic, atraumatic Eyes: nl conjunctiva, EOMI, nl sclera ENMT: nl external ears & nose, nl lips & teeth, mucosa pink and moist Neck: supple, non-tender Respiratory: clear to auscultation, normal air movement; No congested cough, No labored breathing Cardiovascular: regular rate and rhythm, nl pulses; No edema Gastrointestinal: soft, tender (min: toribio-incisional sites; incision sites dry w/o drainage/discoloration/bruising), obese, no rebound/guarding/rigidity Musculoskeletal: nl extremities to inspection, nl gait and stance Extremities: normal pulses; No pitting pedal edema Neurological: nl mental status, nl speech, nl strength Skin: No rash or lesions Results Result Diagram: 10/10/18 0444 10/11/18 0428 SELVIN PÉREZ NP October 11, 2018 11:35
[2018-10-11] MEDS: DEXTROSE 5%-0.45% NACL 1,000 ML IV SCH (11:36)
--- NOTE | 2018-10-11 14:10 | PREAC ---
Date/Time of Note Date/Time of Note DATE: 10/11/18 TIME: 14:10 Anesthesia Eval and Record Evaluation Time Pre-Procedure Interview DATE: 10/11/18 TIME: 14:10 Age 58 Sex male NPO: 8 hrs Preoperative diagnosis gallstones Planned procedure ercp Past Medical History Past Medical History: None Surgery & Anesthesia Issues No known issue Meds Anticoagulation: No Beta Antonio within 24 hr: No Reason Beta Antonio not given: Pt. not on B-Antonio Discontinued Scripts Metronidazole* (Flagyl*) 500 Mg Tablet, 500 MG PO Q8 for 4 Days, TAB Prov:KOFI METZGER MD 05/31/18 Ciprofloxacin Hcl* (Ciprofloxacin Hcl*) 500 Mg Tablet, 500 MG PO BID for 4 Days, #14 TAB Prov:KOFI METZGER MD 05/31/18 Current Medications Morphine Sulfate (morphine) 2 mg Q6 PRN IV SEVERE PAIN LEVEL 7-10 Last administered on 10/10/18at 03:15; Admin Dose 2 MG; Start 10/05/18 at 06:00 Dextrose/Sodium Chloride 1,000 ml @ 20 mls/hr Q24H IV Last administered on 10/09/18at 12:15; Admin Dose 20 MLS/HR; Start 10/05/18 at 06:00 Ceftriaxone Sodium 50 ml @ 100 mls/hr Q24H IVPB Last administered on 10/11/18at 08:56; Admin Dose 100 MLS/HR; Start 10/05/18 at 09:00 Metronidazole 100 ml @ 100 mls/hr Q8 IVPB Last administered on 10/11/18at 05:26; Admin Dose 100 MLS/HR; Start 10/05/18 at 16:00 Hydralazine HCl (Apresoline) 10 mg Q6H PRN IV SBP above 160; Start 10/06/18 at 15:00 Acetaminophen/ Hydrocodone Bitart ([place] (5/325)) 1 tab Q6H PRN PO PAIN LEVEL 4-6; Start 10/09/18 at 21:30 Acetaminophen (Tylenol Tab) 500 mg Q6H PRN PO MILD PAIN(1-3)OR ELEVATED TEMP; Start 10/09/18 at 21:30 Ondansetron HCl (Zofran Inj) 4 mg Q6H PRN IV NAUSEA AND/OR VOMITING; Start 5/6/19 at 21:30 Pantoprazole (Protonix Tab) 40 mg DAILY@06 PO Last administered on 10/10/18at 05 :17; Admin Dose 40 MG; Start 10/10/18 at 06:00 Meds reviewed: Yes Allergies Coded Allergies: No Known Allergy (Unverified , 10/05/18) Allergies Reviewed: Yes Labs/Studies Labs Reviewed: Reviewed by anesthesiologist Result Diagram: 10/10/18 0444 10/11/18 0428 Laboratory Tests 10/11/18 04:28 test: N/A Pre-procedure Exam Last vitals Vital Signs Date Temp Pulse Resp B/P (MAP) Pulse Ox O2 O2 Flow FiO2 Time Delivery Rate 10/11/18 98.1 54 17 139/84 94 Room Air 07:55 (102) 10/09/18 2.0 22:19 Airway: Adequate mouth opening, Adequate thyromental dist Mallampati: Mallampati IV Teeth: Normal Lung: Normal Heart: Normal ASA Physical Status ASA physical status: 2 Emergency: None Pre-operative Attestations Prior to commencing anesthesia and surgery, the patient was re-evaluated, there was verification of: *The patient's identity *The results of appropriate recent lab work and preoperative vital signs *The above evaluation not changing prior to induction *Anesthetic plan, risk benefits, alternative and complications discussed with patient/family; questions answered; patient/family understands, accepts and wishes to proceed. JANINA HAUSER DO October 11, 2018 14:10
[2018-10-11] MEDS ORDERED: IOHEXOL 300MG/ML 30 ML BTL ONE (14:14)
[2018-10-11] MEDS ORDERED: FENTAnyl 50 MCG/ML VIAL IV PRN ×2 (14:30)
--- NOTE | 2018-10-11 15:05 | HPN ---
Date/Time of Note Date/Time of Note DATE: 10/11/18 TIME: 15:05 Interval H&P Admission Note Pt. seen H&P reviewed: No system changes PRABHA WAYNE MD October 11, 2018 15:05
[2018-10-11] MEDS ORDERED: MIDAZOLAM 1 MG/ML 2 ML INJ ONE (15:13)
[2018-10-11] MEDS ORDERED: FENTAnyl 50 MCG/ML VIAL ONE (15:14)
[2018-10-11] MEDS ORDERED: LIDOCAINE 2% (SDV) 5 ML INJ ONE (15:15)
[2018-10-11] MEDS ORDERED: PROPOFOL 20 ML ONE (15:15)
[2018-10-11] MEDS ORDERED: SUCCINYLCHOLINE CHLORIDE 100 MG/5 ML SYG IV ONE (15:15)
[2018-10-11] MEDS ORDERED: CEFAZOLIN 1 GM INJ ONE (15:35)
[2018-10-11] MEDS ORDERED: EPHEDrine 25 MG/5 ML SYG ONE (15:38)
--- NOTE | 2018-10-11 15:55 | PN ---
Date/Time of Note Date/Time of Note DATE: 10/11/18 TIME: 15:55 Assessment/Plan VTE Prophylaxis Risk score (from [facility])>0 risk: 2 SCD applied (from [facility] [place] Yes SCD contraindicated: low risk/ambulating Pharmacological prophylaxis: NA/contraindicated Pharm contraindication: low risk/ambulating Lines/Catheters IV C[facility] Type (from [facility]): Peripheral IV Urinary Cath still in place: No Assessment/Plan Hospital Course 1. Recurrent episodes of gallstone pancreatitis.s/p lap choleon / noted to some pigment stone sleft in cystic duct 2. Cholelithiasis. 3. Leukocytosis secondary to #1, resolved 4. Abnormal LFTs and elevated bilirubin secondary to #1, resolving 5. Hypoalbuminemia. 6. Hypertension. 7. Obesity. Assessment/Plan sp -Lap nimisha pod#1 - some pigment stone in cystic /bile duct per surgery op note > ERCP per GI TODAY -c/w pain control, -c/w IV antibiotics. -GI prophylaxis Protonix -DVT proph. SCD. , ambulation Result Diagram: 10/10/18 0444 10/11/18 0428 Results 24hrs Laboratory Tests Test 10/11/18 04:28 Sodium Level 140 Potassium Level 3.9 Chloride Level 104 Carbon Dioxide Level 28 Anion Gap 8 Blood Urea Nitrogen 13 Creatinine 0.73 Est Glomerular Filtrat Rate mL/min > 60 Glucose Level 125 # Calcium Level 9.0 Total Bilirubin 0.2 Direct Bilirubin 0.00 Indirect Bilirubin 0.2 Aspartate Amino Transf (AST/SGOT) 44 Alanine Aminotransferase (ALT/SGPT) 69 Alkaline Phosphatase 104 Total Protein 6.3 Albumin 3.4 Globulin 2.90 Albumin/Globulin Ratio 1.17 Subjective 24 Hr Interval Summary Free Text/Dictation went for ERCP Exam/Review of Systems Exam Vitals Vital Signs Date Temp Pulse Resp B/P (MAP) Pulse Ox O2 O2 Flow FiO2 Time Delivery Rate 10/11/18 98.1 54 17 139/84 94 Room Air 07:55 (102) 10/09/18 2.0 22:19 Intake and Output 10/10/18 10/10/18 10/11/18 1414:59 22:59 06:59 IntakeIntake Total 960 ml 1270 ml 280 ml BalanceBalance 960 ml 1270 ml 280 ml Results Results 24hrs Laboratory Tests Test 10/11/18 04:28 Sodium Level 140 Potassium Level 3.9 Chloride Level 104 Carbon Dioxide Level 28 Anion Gap 8 Blood Urea Nitrogen 13 Creatinine 0.73 Est Glomerular Filtrat Rate mL/min > 60 Glucose Level 125 # Calcium Level 9.0 Total Bilirubin 0.2 Direct Bilirubin 0.00 Indirect Bilirubin 0.2 Aspartate Amino Transf (AST/SGOT) 44 Alanine Aminotransferase (ALT/SGPT) 69 Alkaline Phosphatase 104 Total Protein 6.3 Albumin 3.4 Globulin 2.90 Albumin/Globulin Ratio 1.17 Medications Medication Current Medications Morphine Sulfate (morphine) 2 mg Q6 PRN IV SEVERE PAIN LEVEL 7-10 Last administered on 10/10/18 03:15; Admin Dose 2 MG; Start 10/05/18 at 06:00 Dextrose/Sodium Chloride 1,000 ml @ 20 mls/hr Q24H IV Last administered on 10/09/18at 12:15; Admin Dose 20 MLS/HR; Start 10/05/18 at 06:00 Ceftriaxone Sodium 50 ml @ 100 mls/hr Q24H IVPB Last administered on 10/11/18at 08:56; Admin Dose 100 MLS/HR; Start 10/05/18 at 09:00 Metronidazole 100 ml @ 100 mls/hr Q8 IVPB Last administered on 10/11/18at 05:26; Admin Dose 100 MLS/HR; Start 10/05/18 at 16:00 Hydralazine HCl (Apresoline) 10 mg Q6H PRN IV SBP above 160; Start 10/06/18 at 15:00 Acetaminophen/ Hydrocodone Bitart ([place] (5/325)) 1 tab Q6H PRN PO PAIN LEVEL 4-6; Start 10/09/18 at 21:30 Acetaminophen (Tylenol Tab) 500 mg Q6H PRN PO MILD PAIN(1-3)OR ELEVATED TEMP; Start 10/09/18 at 21:30 Ondansetron HCl (Zofran Inj) 4 mg Q6H PRN IV NAUSEA AND/OR VOMITING; Start 10/09/18 at 21:30 Pantoprazole (Protonix Tab) 40 mg DAILY@06 PO Last administered on 10/10/18at 05:17; Admin Dose 40 MG; Start 10/10/18 at 06:00 Fentanyl (Sublimaze) 25 mcg PACU ORDER PRN IV MILD PAIN 1-3; Start 10/11/18 at 14:30; Stop 10/11/18 at 22:00 Fentanyl (Sublimaze) 50 mcg PACU ORDER PRN IV MOD PAIN 4-6; Start 10/11/18 at 14:30; Stop 10/11/18 at 22:00 KOFI METZGER MD October 11, 2018 15:55
--- NOTE | 2018-10-11 16:28 | PAC ---
Date/Time of Note Date/Time of Note DATE: 10/11/18 TIME: 16:15 Post-Anesthesia Notes Post-Anesthesia Note Last documented vital signs Vital Signs Date Temp Pulse Resp B/P (MAP) Pulse Ox O2 O2 Flow FiO2 Time Delivery Rate 10/11/18 98 82 18 120/53 100 Room Air 1627 10/09/18 2.0 22:19 Activity: WNL Respiratory function: WNL Cardiovascular function: WNL Mental status: Baseline Pain reasonably controlled: Yes Hydration appropriate: Yes Nausea/Vomiting absent: Yes JANINA HAUSER DO October 11, 2018 16:25
[2018-10-12 03:14] VITALS: BP 129/84; PULSE 64; RESP 16
[2018-10-12] MEDS: metroNIDAZOLE 500 MG/NS (PMX) 100 ML IVPB SCH (05:35)
[2018-10-12] MEDS: PANTOPRAZOLE (EC) 40 MG TAB PO SCH (05:35)
[2018-10-12 08:07] VITALS: BP 136/92; PULSE 53; RESP 18
[2018-10-12] MEDS: CEFTRIAXONE 1 GM/50 ML (PMX) 50 ML IVPB SCH (08:40)
--- NOTE | 2018-10-12 13:32 | CONS ---
Assessment/Plan Assessment/Plan Hospital Course (Demo Recall) 58 yo male 1. Biliary pancreatitis -resolved 2. Multiple gallstones. 3. Hypertension. 4. Mild obesity. 5. Patient may have small bile duct stone or cystic duct stone which was observed in the OR during laparoscopic procedure 6. S/P lap nimisha 10/10 7. S/P ERCP -sphincterotomy Plan: Advance diet as tolerated Monitor LFTS Pt examined and plan of care discussed with Dr Pacheco Consultation Date/Type/Reason Admit Date/Time October 05, 2018 at 00:42 Initial Consult Date Date/Time of Note DATE: 10/12/18 TIME: 13:30 Exam/Review of Systems Exam Vitals Vital Signs Date Temp Pulse Resp B/P (MAP) Pulse Ox O2 O2 Flow FiO2 Time Delivery Rate 10/12/18 98.0 53 18 136/92 96 Room Air 08:07 (107) 10/11/18 8.0 16:20 Intake and Output 10/11/18 10/11/18 10/12/18 1515:00 23:00 07:00 IntakeIntake Total 50 ml 580 ml 100 ml BalanceBalance 50 ml 580 ml 100 ml Constitutional: alert, oriented Psych: no complaints Head: normocephalic Eyes: PERRL ENMT: mucosa pink and moist Respiratory: clear to auscultation Gastrointestinal: soft, non-tender Neurological: nl mental status Results Result Diagram: 10/10/18 0444 10/12/18 1014 Results 24hrs Laboratory Tests Test 10/12/18 10:14 Sodium Level 141 Potassium Level 4.2 Chloride Level 105 Carbon Dioxide Level 30 Anion Gap 6 Blood Urea Nitrogen 9 Creatinine 0.60 L Est Glomerular Filtrat Rate mL/min > 60 Glucose Level 122 Calcium Level 9.3 Total Bilirubin 0.4 Direct Bilirubin 0.00 Indirect Bilirubin 0.4 Aspartate Amino Transf (AST/SGOT) 39 Alanine Aminotransferase (ALT/SGPT) 60 Alkaline Phosphatase 124 H Total Protein 7.1 Albumin 3.8 Globulin 3.30 H Albumin/Globulin Ratio 1.15 Lipase 117 Medications Medication Current Medications Morphine Sulfate (morphine) 2 mg Q6 PRN IV SEVERE PAIN LEVEL 7-10 Last administered on 10/10/18at 03:15; Admin Dose 2 MG; Start 10/05/18 at 06:00 Hydralazine HCl (Apresoline) 10 mg Q6H PRN IV SBP above 160; Start 10/06/18 at 15:00 Acetaminophen/ Hydrocodone Bitart ([place] (5/325)) 1 tab Q6H PRN PO PAIN LEVEL 4-6; Start 10/09/18 at 21:30 Acetaminophen (Tylenol Tab) 500 mg Q6H PRN PO MILD PAIN(1-3)OR ELEVATED TEMP; Start 10/09/18 at 21:30 Ondansetron HCl (Zofran Inj) 4 mg Q6H PRN IV NAUSEA AND/OR VOMITING; Start 10/09/18 at 21:30 Pantoprazole (Protonix Tab) 40 mg DAILY@06 PO Last administered on 10/12/18at 05:35; Admin Dose 40 MG; Start 10/10/18 at 06:00 MEHDI BURGER October 12, 2018 13:32
--- NOTE | 2018-10-12 14:05 | PN ---
Date/Time of Note Date/Time of Note DATE: 10/12/18 TIME: 14:00 Assessment/Plan Lines/Catheters IV Catheter Type (from [facility]): Peripheral IV Turk in Place (from [facility]): No Assessment/Plan Chief Complaint/Hosp Course 1. Recurrent pancreatitis: Symptomatic cholelithiasis, gallstone pancreatitis, cystic duct tiny sand-like black stones possible CBD stones status post lap scopic cholecystectomy 10/09/2018; Repeat CT noted: minimal improvement; lipase normalized; S/p ercp w sphincterotomy, possible infected bile and possible stone removed -IS -ambulate -ice pack to abdominal wall -diet per GI -ok for dc from surgical standpoint w fu in office in 2 weeks. 2. Cholelithiasis -As above 3. Abdominal pain: improved -Pain management 4. Leukocytosis: resolved -As above 5. Transaminitis with elevated bilirubin: resolved -Trend -As above 6. Hypoalbuminemia with hypocalcemia: -Eventual nutrition optimization -Treat infections 7. Obesity: BMI: 33 -diet and exercise optimization -encourage weight loss 8. Hypertension -Highly encourage weight loss -Nutrition and medication optimization Thank you. Patient seen and examined in collaboration with Dr. Matteo Pennington. Subjective 24 Hr Interval Summary S/p ercp. No fevers, chills, sob, congested cough, cp, palpitations, monsalve, dizziness, n/v/d/dysuria. Exam/Review of Systems Vital Signs Vitals Vital Signs Date Temp Pulse Resp B/P (MAP) Pulse Ox O2 O2 Flow FiO2 Time Delivery Rate 10/12/18 98.2 80 127/81 97 Room Air 14:32 (96) 10/12/18 18 08:07 10/11/18 8.0 16:20 Intake and Output 10/11/18 10/11/18 10/12/18 1515:00 23:00 07:00 IntakeIntake Total 50 ml 580 ml 100 ml BalanceBalance 50 ml 580 ml 100 ml Exam Free Text/Dictation Constitutional: alert, oriented Psych: no complaints, nl mood/affect Head: normocephalic, atraumatic Eyes: nl conjunctiva, EOMI, nl sclera ENMT: nl external ears & nose, nl lips & teeth, mucosa pink and moist Neck: supple, non-tender Respiratory: clear to auscultation, normal air movement; No congested cough, No labored breathing Cardiovascular: regular rate and rhythm, nl pulses; No edema Gastrointestinal: soft, tender (min: toribio-incisional sites; incision sites dry w/o drainage/discoloration/bruising), obese, no rebound/guarding/rigidity Musculoskeletal: nl extremities to inspection, nl gait and stance Extremities: normal pulses; No pitting pedal edema Neurological: nl mental status, nl speech, nl strength Skin: No rash or lesions Results Result Diagram: 10/10/18 0444 10/12/18 1014 SELVIN PÉREZ NP October 12, 2018 14:04
[2018-10-12 14:32] VITALS: BP 127/81; PULSE 80
--- NOTE | 2018-10-12 15:34 | PDOCDIS ---
Discharge Instructions DIAGNOSIS Discharge Diagnosis gall stone pancreatitis s/p lap nimisha CONDITION [id number] Patient Condition: [id number] Fair HOME CARE INSTRUCTIONS: [id number] Diet Instructions: [id number] Modified Fat ACTIVITY: [id number] Activity Restrictions: [id number] Slowly Increase Activity Rest between Activity Avoid heavy lifting FOLLOW UP/APPOINTMENTS Follow-up Plan fu PCP in 2-[address] morfin in 2 weeks return to ER if has severe abdominal pain/fevers/chills KOFI METZGER MD October 12, 2018 15:34
--- NOTE | 2018-10-13 03:13 | DS ---
DATE OF ADMISSION: 10/05/2018 DATE OF DISCHARGE: 10/12/2018 HISTORY OF PRESENTING ILLNESS AND HOSPITAL COURSE: This is a 58-year-old male with a past medical hi story of recurrent gallstone pancreatitis recently admitted in 05/2018 secondary to gallstone pancrea titis. At that time, the patient was treated conservatively and was told to get surgery as an outpat ient. According to the patient, he went home. He was doing fine and started having ____ as per the PMD. He was supposed to see Dr. Pennington as an outpatient. He was scheduled to see him in 10/2018. According to him, he started having epigastric pain, nausea, vomiting and pain started becoming shobha nuous. He came to the emergency department. On ED, the patient had blood pressure of 189/106, white count 10.7, BUN of 13, creatinine 0.6, lipase was 4156, AST of 59, ALT 148, alkaline phosphatase is 154. The patient was started on IV fluids and admitted for further management. The patient was kept n.p.o., started on IV fluids, started on IV antibiotics, Rocephin and Flagyl. The patient was seen by GI consultation with Dr. Pacheco. The recommendations were followed. The patient also had gallbla dder ultrasound that showed gallstones and gallbladder sludge without ultrasound evidence of cholecys titis, mildly dilated common bile duct measuring 6.8 mm. The patient also had a CT of the abdomen an d pelvis that showed ongoing pancreatitis, stable to slightly improve from prior examination. No pse udocyst formation or pancreatic necrosis. The patient also had an MRI that showed no evidence of millicent iary duct obstruction, cholelithiasis, trace perihepatic fluid. The patient went for laparoscopic ch olecystectomy by Dr. Pennington on 10/10/2018. However postop, the patient was noted to have cystic surinder t ____ stools; therefore, may have CBD stone as well. The patient was seen by GI again and had ERCP performed so ERCP showed had sphincterotomy, dilated bile duct with possible internal bile which was drained and ____ small stone which have been passed. The patient was started on clear liquids, rosa ated it without any pain, nausea, vomiting. Currently, the patient is stable to be discharged home. FINAL DISCHARGE DIAGNOSES: 1. Gallstone pancreatitis. 2. Status post laparoscopic cholecystectomy. 3. Leukocytosis, resolved. 4. Abnormal liver function tests secondary to #1, resolved. 5. Hyperalbuminemia. 6. Hypertension. 7. Obesity. DISCHARGE CONDITION: Stable. DISCHARGE DIET: A 2-gram sodium, low cholesterol diet. DISCHARGE INSTRUCTIONS: The patient was instructed to follow up with Dr. Pennington in 1 to 2 weeks. T he patient was instructed to return to the ER with severe abdominal pain, nausea, vomiting, fevers an d chills. Dictated By: KOFI MONTGOMERY/TAWANDA Conf#: [id number] DID#: [id number] CC: ELIDA BARNES MD; PRABHA PACHECO MD;*End*
== END 2018-10-12 17:00 | disposition home or self-care (01) | DRG 419 ==
LOC: E/R 19:40 → 2NE 10-05 00:42
PROVIDERS: ADMIT Internal Medicine Nephrology; ATTEND Internal Medicine Nephrology
PROC: 0FB04ZX Excision of Liver, Percutaneous Endoscopic Approach, Diagnostic (ICD-10-PCS; 2018-10-09)
PROC: 0FT44ZZ Resection of Gallbladder, Percutaneous Endoscopic Approach (ICD-10-PCS; principal; 2018-10-09 18:00)
PROC: 0FC98ZZ Extirpation of Matter from Common Bile Duct, Via Natural or Artificial Opening Endoscopic (ICD-10-PCS; 2018-10-11)
PROC: 0F998ZZ Drainage of Common Bile Duct, Via Natural or Artificial Opening Endoscopic (ICD-10-PCS; 2018-10-11)
DX: K85.10 Biliary acute pancreatitis without necrosis or infection (principal); K80.70 Calculus of gallbladder and bile duct without cholecystitis without obstruction; E83.51 Hypocalcemia; E88.09 Other disorders of plasma-protein metabolism, not elsewhere classified; I10 Essential (primary) hypertension; Z68.33 Body mass index [BMI] 33.0-33.9, adult; E66.9 Obesity, unspecified
CPT/HCPCS: 36415; 71045; 73562; 74177; 74181; 74330; 76705; 80053; 82150; 83690; 83735; 84100; 85025; 85610; 88304; 88307; 88313; 96374; C9113; J0690; J0696; J1100; J1170; J2250; J2270; J2405; J2710; J3010; J7042; Q9967

== ENCOUNTER 2018-11-10 19:43 | Emergency (ER) | payer BC ==
[~2018-11-10] VITALS: Ht 170.2 cm; Wt 95.0 kg
[2018-11-10 19:48] VITALS: BP 181/103; PULSE 83; RESP 18; Ht 170.2 cm; Wt 95.0 kg
[2018-11-10] MEDS ORDERED: TETRACAINE 0.5% 4 ML OPH RIGHT EYE ONE (20:30)
[2018-11-10] MEDS ORDERED: FLUORESCEIN STRIP RIGHT EYE ONE (20:30)
[2018-11-10] MEDS ORDERED: OFLO5DRO46 RIGHT EYE (20:57)
--- NOTE | 2018-11-10 22:43 | ERD ---
ER Documentation Chief Complaint Chief Complaint FOREIGN BODY IN R EYE X'S 2 DAYS HPI 58-year-old male presenting with irritation to his right eye. He states is been going for the last 2 days. 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 He has not put any medication or drops in his eye. Denies any use of contacts or glasses. Denies medical problems. NKDA. Surgical history: Stone removal. Social history denies ROS All systems reviewed and are negative except as per history of present illness. Medications Home Meds Active Scripts Ofloxacin* (Ocuflox*) 0.3%-5 Ml Ophth Drops, 1 DROP RIGHT EYE QID, #1 BOTTLE Prov:NIC COOL PA-C 11/10/18 Allergies Allergies: Coded Allergies: No Known Allergy (Unverified , 10/05/18) PMhx/Soc History of Surgery: No Anesthesia Reaction: No Hx Neurological Disorder: No Hx Respiratory Disorders: No Hx Cardiac Disorders: No Hx Psychiatric Problems: No Hx Miscellaneous Medical Probl: No Hx Alcohol Use: No Hx Substance Use: No Hx Tobacco Use: No Smoking Status: Never smoker FmHx Family History: No diabetes, No coronary disease, No other Physical Exam Vitals Vital Signs Date Temp Pulse Resp B/P (MAP) Pulse Ox O2 O2 Flow FiO2 Time Delivery Rate 11/10/18 98.0 83 18 181/103 98 19:48 (129) Physical Exam GENERAL: The patient is well-appearing, well-nourished, in no acute distress HEENT: Atraumatic. Conjunctivae are pink. Pupils equal, round, and reactive to light. Injection noted to the right sclera. Small region of uptake noted superior to the cornea. Tympanic membranes clear bilaterally. Oropharynx clear. CHEST: Clear to auscultation bilaterally. There are no rales, wheezes or rhonchi. HEART: Regular rate and rhythm. No murmurs, clicks, rubs or gallops. Results 24 hrs Current Medications Medications Dose Sig/Estela Start Time Status Last (Trade) Ordered Route PRN Stop Time Admin Dose Reason Admin Fluorescein 1 strip ONCE ONCE 11/10/18 DC Sodium RIGHT EYE 20:30 11/10/18 (Roiwi-Y-Wmsy 20:31 p) Tetracaine 1 drop ONCE ONCE 11/10/18 DC HCl RIGHT EYE 20:30 11/10/18 (Tetracaine 20:31 0.5% Steri-Unit Katie) Procedures/MDM ER course: Fluorescein and tetracaine used to the right eye. Small amount of uptake noted with no foreign body. No globe rupture seen. MDM: 58-year-old male presenting with Irritation to the right eye. Patient appears to have a small abrasion. Patient is discharged with supportive medications. I do not see a foreign body and does not require removal at this time. Patient is discharged with strict ER precautions and told to follow-up with primary care. Patient is told symptoms change or worsen to return the ER. Patient is recommended to follow-up with utility system repairer. All questions answered at discharge Departure Diagnosis: Primary Impression: Corneal abrasion Condition: Stable Patient Instructions: Corneal Abrasion Referrals: [facility] Hours: Mon - Fri 9:00 AM - 5:00 PM Additional Instructions: FOLLOW UP WITH YOUR PRIMARY CARE PHYSICIAN TOMORROW.Return to this facility if you are not improving as expected. NIC COOL PA-C Nov 10, 2018 22:43
== END 2018-11-10 21:20 | disposition home or self-care (01) ==
LOC: FTE 19:43
DX: S05.01XA Injury of conjunctiva and corneal abrasion without foreign body, right eye, initial encounter (principal); X58.XXXA Exposure to other specified factors, initial encounter; Y92.9 Unspecified place or not applicable
CPT/HCPCS: Z7502; Z7610; 99283